=== PATIENT | male | born 1935 | race Caucasian/White ===

== ENCOUNTER 2021-05-25 15:21 | Inpatient (IN) ==
--- NOTE | 2021-05-25 16:20 | XRay Report ---
XR hip LT 2V w pelvis CLINICAL HISTORY: fall COMPARISON: None. DISCUSSION: No acute fracture or dislocation seen. Evaluation is limited due to diffuse osteopenia. Extensive vas cular calcifications are seen. Degenerative changes of the lower lumbar spine is seen. IMPRESSION: No acute fracture or dislocation. ACT 112: Negative or not required by law. The above report was generated using voice recognition software. It may contain grammatical, syntax o r spelling errors. Electronically signed by: Kathy Pimentel DO 05/25/2021 4:18 PM
--- NOTE | 2021-05-25 16:41 | CT Scan Report ---
CT head/brain wo con CLINICAL HISTORY: fall COMPARISON STUDY: No previous studies for comparison. TECHNIQUE: Axial CT of the brain is performed from the vertex to the skull base. IV contrast was not administered for this examination. A dose lowering technique was utilized adhering to the principles of ALARA. CT DOSE: FINDINGS: No acute intracranial hemorrhage, no midline shift or space occupying lesions are seen. Acevedo-white matter differentiation is resolved. Diffuse decrease in attenuation within periventricular and subcortical white matter are seen likely r epresenting chronic small vessel ischemia. Lacunar infarct is seen within right periventricular white matter and left basal ganglia. Diffuse atrophic changes of brain parenchyma are seen and associated with ex vacuo dilatation of vent ricles. Concentric calcifications of the bilateral vertebral arteries are seen. There is no acute depressed skull fracture seen. Almost complete opacification of the right maxillary sinus likely representing inflammatory process. The rest of visualized paranasal sinuses and mastoid air cells are patent and well-aerated. IMPRESSION: No acute intracranial hemorrhage, no midline shift or space occupying lesions. No acute depressed skull fractures. Signal ascites. Chronic small vessel ischemia and atrophic changes of brain parenchyma. ACT 112: Negative or not required by law. The above report was generated using voice recognition software. It may contain grammatical, syntax o r spelling errors. Electronically signed by: Kathy Pimentel DO 05/25/2021 4:39 PM
--- NOTE | 2021-05-25 16:52 | CT Scan Report ---
CT OF THE CERVICAL SPINE CLINICAL HISTORY: fall COMPARISON STUDY: No previous studies for comparison. CT DOSE: 1031.15 mGy.cm TECHNIQUE: CT scan of the cervical spine was performed from the skull base to the thoracic inlet. Carina ges are reviewed in the axial, sagittal, and coronal planes. IV contrast was not administered for thi s examination. A dose lowering technique was utilized adhering to the principles of ALARA. FINDINGS: The visualized portions of the lung apices reveal no evidence of pneumothorax. The prevertebral soft tissues are normal. No acute fractures seen. Evaluation is limited due to diffuse severe osteopenia. Mild anterolisthesis of C3 on C4 and retrolisthesis of C4 on C5 are seen and associated with fusion of the right facet leslie int. Facet joints are aligned throughout cervical spine. There is loss of normal cervical lordosis.. There are multilevel degenerative changes Mild narrowing of the central canal at C4-C5 and C5-C6 level due to posterior osteophytes and hypertr ophic changes of uncovertebral joints. IMPRESSION: 1. No evidence of acute fracture or traumatic malalignment. 2. Severe multilevel degenerative changes as detailed above. 3. Mild anterolisthesis of C3 on C4 and retrolisthesis of C4 on C5 is associated with fusion of the right facet joint at C3-C4 level. ACT 112: Negative or not required by law. The above report was generated using voice recognition software. It may contain grammatical, syntax o r spelling errors. Electronically signed by: Kathy Pimentel DO 05/25/2021 4:51 PM
--- NOTE | 2021-05-25 16:53 | XRay Report ---
XR femur LT 2V routine CLINICAL HISTORY: fall COMPARISON: None. DISCUSSION: The bones and joint spaces appear intact. There is no evidence of fracture or dislocation . Diffuse soft tissue edema, degenerative changes of the left knee joint and heavy vascular calcificati ons are seen. IMPRESSION: No acute fracture or dislocation. ACT 112: Negative or not required by law. The above report was generated using voice recognition software. It may contain grammatical, syntax o r spelling errors. Electronically signed by: Kathy Pimentel DO 05/25/2021 4:52 PM
--- NOTE | 2021-05-25 16:54 | XRay Report ---
XR chest 1V portable CLINICAL HISTORY: fall COMPARISON STUDY: No previous studies for comparison. FINDINGS: No pneumothorax. No pleural effusion. Mild atelectasis is seen at the left base. Cardiac silhouette is mildly enlarged. Aorta is tortuous and calcified. Midline sternotomy wires are seen. No significant pulmonary vascular congestion.. Osseous structures: Degenerative changes of the spine. IMPRESSION: 1. Small atelectasis at the left base. ACT 112: Negative or not required by law. The above report was generated using voice recognition software. It may contain grammatical, syntax o r spelling errors. Electronically signed by: Kathy Pimentel DO 05/25/2021 4:53 PM
[2021-05-25 16:58] LABS: Basophils # (auto) 0.02 K/uL (0-0.2); Basophils % (auto) 0.2 %; Eosinophils # (auto) 0.09 K/uL (0-0.5); Eosinophils % (auto) 0.8 %; Hematocrit (blood only) 41.9 % (42-52); Hemoglobin 14.3 g/dL (14.0-18.0); Immature Granulocytes # (auto) 0.05 K/uL (0.00-0.02); Immature Granulocytes % (auto) 0.5 %; Lymphocytes # (auto) 1.97 K/uL (1.2-3.4); Lymphocytes % (auto) 18.2 %; Mean Corpuscular Hemoglobin 34.2 pg (25-34); Mean Corpuscular Hgb Conc 34.1 g/dL (32-36); Mean Corpuscular Volume 100.2 fL (80-100); Mean Platelet Volume 8.8 fL (7.4-10.4); Monocytes # (auto) 1.85 K/uL (0.11-0.59); Monocytes % (auto) 17.1 %; Neutrophils # (auto) 6.82 K/uL (1.4-6.5); Neutrophils % (auto) 63.2 %; Platelet Count 240 K/uL (130-400); RDW Coefficient of Variation 13.6 % (11.5-14.5); RDW Standard Deviation 49.9 fL (36.4-46.3); Red Blood Count 4.18 M/uL (4.7-6.1)
[2021-05-25 17:16] LABS: BUN Creatinine Ratio 19.1 (10-20); Calcium 9.9 mg/dl (8.5-10.1); Creatinine Clr Calc Pharmacy 60.4 ml/min; Est GFR (African American) 85.9 ml/min; Est GFR (Non-African American) 74.2 ml/min; Potassium 4.1 mmol/L (3.5-5.1)
--- NOTE | 2021-05-25 18:07 | Emergency Department Note ---
History of Present Illness General Chief complaint: Hip Pain Stated complaint: Fall Time Seen by Provider: 05/25/21 15:37 Source: patient, family and EMS History of Present Illness Provider complaint: Fall left hip pain Location: lower extremity and left Quality: + aching Relieved By: + none Exacerbated By: + none Associated symptoms: no chest pain, no cough, no fever/chills, no headaches, no nausea/vomiting and no shortness of breath 85-year-old male presents emergency department for fall and left hip pain. Patient reports he fell yesterday. He does not report hitting his head. Patient reports his pain is moderate. Pain is located left hip. No radiation of the pain. Patient was brought in by EMS. EMS reports that the family states that the patient is fallen multiple times and cannot walk. They state he has early dementia and is more confused. Home Medications Medication Instructions Recorded Confirmed Type niacin 500 mg tablet 500 mg PO DAILY 03/12/20 05/25/21 History aspirin-dipyridamole [Aggrenox] 1 cap PO QAM 05/25/21 05/25/21 History atorvastatin 40 mg PO HS 05/25/21 05/25/21 History levothyroxine [Synthroid] 75 mcg PO QAM 05/25/21 05/25/21 History lisinopril 10 mg PO DAILY 05/25/21 05/25/21 History metoprolol tartrate 50 mg PO BID 05/25/21 05/25/21 History phenobarbital 16.2 mg PO QAM 05/25/21 05/25/21 History phenobarbital 32.4 mg PO BID 05/25/21 05/25/21 History phenytoin sodium extended 100 mg PO TID 05/25/21 05/25/21 History tamsulosin 0.4 mg PO BID 05/25/21 05/25/21 History Allergies Allergy/AdvReac Type Severity Reaction Status Date / Time No Known Allergies Allergy Unknown Verified 05/25/21 17:22 Past Med/Surg History Medical History BPH with obstruction/lower urinary tract symptoms Seizure Surgical History History of eye surgery History of heart surgery History of knee surgery RIGHT History of tonsillectomy Family History Denies family history of Prostate cancer Social History Smoking Status: Never smoker Hx Alcohol Use: No marital status: current occupational status: retired Feels Safe at Home: Yes Review of Systems Unobtainable due to cognitive status Physical Exam Vital Signs Vital Signs - 24 hr 05/25/21 15:13 05/25/21 16:30 Temperature 36.9 C Temperature Source Oral Pulse Rate 70 Respiratory Rate 18 Respiratory Effort / Characteristics Non-Labored Respiratory Depth Normal Respiratory Pattern Regular Blood Pressure 144/63 H Blood Pressure Mean 90 Blood Pressure Position Lying Pulse Oximetry 96 95 Oxygen Delivery Method Room Air Sepsis Recent Fever Within 48 Hours No Sepsis New/Unexplained Change in Mental Status No Sepsis Action Taken by Nursing No Action Required Physical Exam HENT: Exam performed. - Head: Normocephalic and atraumatic. - Right Ear: External ear normal. No mastoid tenderness. - Left Ear: External ear normal. No mastoid tenderness. - Mouth/Throat: The oropharynx is clear and moist. No trismus in the jaw. No dental abscesses or uvula swelling. No oropharyngeal exudate or tonsillar abscesses. EYES: Conjunctivae and EOM are normal. Pupils are equal, round, and reactive to light. Right eye exhibits no discharge. Left eye exhibits no discharge. No scleral icterus. NECK: Normal range of motion. Neck supple. No JVD present. No spinous process tenderness present. CV: Normal rate, regular rhythm, normal heart sounds and intact distal pulses. There is no peripheral edema. Palpable radial pulses bue. PULM/CHEST: Effort normal and breath sounds normal. No respiratory distress. No stridor. He has no wheezes. He has no rales. - Chest Wall: He exhibits no tenderness. ABD: The abdomen is soft. Bowel sounds are normal. He has no distension. No mass is present. There is no tenderness. There is no rebound, no guarding, no Valerio's sign and no tenderness at McBurney's point. Rovsig negative. MUSC/SKEL: Pain on palpation of the left hip. Pelvis stable. NEURO: Motor and sensation grossly intact. Course Course 153: The patient was evaluated in room B4. A complete history and physical exam was performed Cardiac monitoring: An order was placed for continuous cardiac monitoring. The monitor shows a rate of 70 with sinus rhythm 1600: patient's at bedside. She is requesting to speak to me in private. I spoke with the in private and she states that the patient has early onset dementia and is been falling more recently. She states he fell 5 times yesterday and the last 2 times she had to call for someone to help pick him up. She states patient cannot walk properly. She is requesting that patient be admitted to the hospital overnight for observation and placed in a rehab facility. I told the patient would have to see what the patient's labs and imaging showed first. She states she is having difficulty taking care of him at home. 1750: Vital signs stable. Labs within normal limits with exception of elevated Dilantin level. Imaging within normal limits. Discussed case with neurology on-call Dr. Moss who states hold the patient's Dilantin and he could be falling due to Dilantin toxicity. I discussed case with Dr. Zeb tineo [facility] hospitalist who stated he would evaluate the patient for admission. is again asking for the patient to be admitted but patient is arguing with his stating that he does not want to be admitted. lay out worker Laura will meet with them to see if the patient is willing to be admitted. Medical Decision Making Laboratory Data Result diagrams: 05/25/21 16:47 05/25/21 16:47 Lab Results 05/25/21 05/25/21 05/25/21 Range/Units 16:47 16:47 16:47 WBC 10.80 (4.8-10.8) K/uL RBC 4.18 L (4.7-6.1) M/uL Hgb 14.3 (14.0-18.0) g/dL Hct 41.9 L (42-52) % MCV 100.2 H (80-100) fL MCH 34.2 H (25-34) pg MCHC 34.1 (32-36) g/dL RDW Std Deviation 49.9 H (36.4-46.3) fL RDW Coeff of Manisha 13.6 (11.5-14.5) % Plt Count 240 (130-400) K/uL MPV 8.8 (7.4-10.4) fL Immature Gran % (Auto) 0.5 % Neut % (Auto) 63.2 % Lymph % (Auto) 18.2 % [place] % (Auto) 17.1 % Eos % (Auto) 0.8 % Baso % (Auto) 0.2 % Neut # (Auto) 6.82 H (1.4-6.5) K/uL Lymph # (Auto) 1.97 (1.2-3.4) K/uL [place] # (Auto) 1.85 H (0.11-0.59) K/uL Eos # (Auto) 0.09 (0-0.5) K/uL Baso # (Auto) 0.02 (0-0.2) K/uL Immature Gran # (Auto) 0.05 H (0.00-0.02) K/uL Sodium 137 (136-145) mmol/L Potassium 4.1 (3.5-5.1) mmol/L Chloride 104 (98-107) mmol/L Carbon Dioxide 25 (21-32) mmol/L Anion Gap 7.0 (3-11) BUN 18 (7-18) mg/dl Creatinine 0.94 (0.6-1.4) mg/dl Est Cr Clr Drug Dosing 60.4 ml/min Est GFR ( Amer) 85.9 ml/min Est GFR (Non-Af Amer) 74.2 ml/min BUN/Creatinine Ratio 19.1 (10-20) Glucose 125 H (70-99) mg/dl Calcium 9.9 (8.5-10.1) mg/dl Total Creatine Kinase 201 (39-308) U/L Phenytoin 32.3 H* (10-20) mcg/ml Imaging Data Radiologist's Impression: Head CT 05/25/21 15:44 CT head/brain wo con CLINICAL HISTORY: fall COMPARISON STUDY: No previous studies for comparison. TECHNIQUE: Axial CT of the brain is performed from the vertex to the skull base. IV contrast was not administered for this examination. A dose lowering technique was utilized adhering to the principles of ALARA. CT DOSE: FINDINGS: No acute intracranial hemorrhage, no midline shift or space occupying lesions are seen. Acevedo-white matter differentiation is resolved. Diffuse decrease in attenuation within periventricular and subcortical white matter are seen likely representing chronic small vessel ischemia. Lacunar infarct is seen within right periventricular white matter and left basal ganglia. Diffuse atrophic changes of brain parenchyma are seen and associated with ex va cuo dilatation of ventricles. Concentric calcifications of the bilateral vertebral arteries are seen. There is no acute depressed skull fracture seen. Almost complete opacification of the right maxillary sinus likely representing inflammatory process. The rest of visualized paranasal sinuses and mastoid air cells are patent and well- aerated. IMPRESSION: No acute intracranial hemorrhage, no midline shift or space occupying lesions. No acute depressed skull fractures. Signal ascites. Chronic small vessel ischemia and atrophic changes of brain parenchyma. ACT 112: Negative or not required by law. The above report was generated using voice recognition software. It may contain grammatical, syntax or spelling errors. Electronically signed by: Kathy Pimentel DO 05/25/2021 4:[address] 05/25/21 15:45 CT OF THE CERVICAL SPINE CLINICAL HISTORY: fall COMPARISON STUDY: No previous studies for comparison. CT DOSE: 1031.15 mGy.cm TECHNIQUE: CT scan of the cervical spine was performed from the skull base to the thoracic inlet. Images are reviewed in the axial, sagittal, and coronal planes. IV contrast was not administered for this examination. A dose lowering technique was utilized adhering to the principles of ALARA. FINDINGS: The visualized portions of the lung apices reveal no evidence of pneumothorax. The prevertebral soft tissues are normal. No acute fractures seen. Evaluation is limited due to diffuse severe osteopenia. Mild anterolisthesis of C3 on C4 and retrolisthesis of C4 on C5 are seen and associated with fusion of the right facet joint. Facet joints are aligned throughout cervical spine. There is loss of normal cervical lordosis.. There are multilevel degenerative changes Mild narrowing of the central canal at C4-C5 and C5-C6 level due to posterior osteophytes and hypertrophic changes of uncovertebral joints. IMPRESSION: 1. No evidence of acute fracture or traumatic malalignment. 2. Severe multilevel degenerative changes as detailed above. 3. Mild anterolisthesis of C3 on C4 and retrolisthesis of C4 on C5 is associated with fusion of the right facet joint at C3-C4 level. ACT 112: Negative or not required by law. The above report was generated using voice recognition software. It may contain grammatical, syntax or spelling errors. Electronically signed by: Kathy Pimentel DO 05/25/2021 4:51 PM Chest X-Ray 05/25/21 15:45 XR chest 1V portable CLINICAL HISTORY: fall COMPARISON STUDY: No previous studies for comparison. FINDINGS: No pneumothorax. No pleural effusion. Mild atelectasis is seen at the left base. Cardiac silhouette is mildly enlarged. Aorta is tortuous and calcified. Midline sternotomy wires are seen. No significant pulmonary vascular congestion.. Osseous structures: Degenerative changes of the spine. IMPRESSION: 1. Small atelectasis at the left base. ACT 112: Negative or not required by law. The above report was generated using voice recognition software. It may contain grammatical, syntax or spelling errors. Electronically signed by: Kathy Pimentel DO 05/25/2021 4:53 PM Femur X-Ray 05/25/21 15:45 XR femur LT 2V routine CLINICAL HISTORY: fall COMPARISON: None. DISCUSSION: The bones and joint spaces appear intact. There is no evidence of fracture or dislocation. Diffuse soft tissue edema, degenerative changes of the left knee joint and heavy vascular calcifications are seen. IMPRESSION: No acute fracture or dislocation. ACT 112: Negative or not required by law. The above report was generated using voice recognition software. It may contain grammatical, syntax or spelling errors. Electronically signed by: Kathy Pimentel DO 05/25/2021 4:52 PM Hip/Pelvis X-Ray 05/25/21 15:45 XR hip LT 2V w pelvis CLINICAL HISTORY: fall COMPARISON: None. DISCUSSION: No acute fracture or dislocation seen. Evaluation is limited due to diffuse osteopenia. Extensive vascular calcifications are seen. Degenerative changes of the lower lumbar spine is seen. IMPRESSION: No acute fracture or dislocation. ACT 112: Negative or not required by law. The above report was generated using voice recognition software. It may contain grammatical, syntax or spelling errors. Electronically signed by: Kathy Pimentel DO 05/25/2021 4:18 PM [facility] Narrative 1537: The patient was evaluated in room B4. A complete history and physical exam was performed Cardiac monitoring: An order was placed for continuous cardiac monitoring. The monitor shows a rate of 70 with sinus rhythm 1600: patient's at bedside. She is requesting to speak to me in private. I spoke with the in private and she states that the patient has early onset dementia and is been falling more recently. She states he fell 5 times yesterday and the last 2 times she had to call for someone to help pick him up. She states patient cannot walk properly. She is requesting that patient be admitted to the hospital overnight for observation and placed in a rehab facility. I told the patient would have to see what the patient's labs and imaging showed first. She states she is having difficulty taking care of him at home. 1750: Vital signs stable. Labs within normal limits with exception of elevated Dilantin level. Imaging within normal limits. Discussed case with neurology on-call Dr. Moss who states hold the patient's Dilantin and he could be falling due to Dilantin toxicity. I discussed case with Dr. Zeb tineo [facility] hospitalist who stated he would evaluate the patient for admission. is ag ain asking for the patient to be admitted but patient is arguing with his stating that he does not want to be admitted. lay out worker Laura will meet with them to see if the patient is willing to be admitted. Impression & Plan Dilantin toxicity, Recurrent falls Discharge Plan Visit Data Chief Complaint: Hip Pain Stated Complaint: Fall ED Provider: Joce Bennett Discharge Problem: Dilantin toxicity, Recurrent falls Patient Disposition: Being Evaluated by Hospitalist Forms Stand Alone Forms: My [facility] Prescriptions Prescriptions: No Action niacin 500 mg tablet 500 mg PO DAILY RF: 0 atorvastatin 40 mg tablet 40 mg PO HS RF: 0 phenobarbital 16.2 mg tablet 16.2 mg PO QAM RF: 0 aspirin-dipyridamole [Aggrenox] 25-200 mg Capsule, Er Multiphase 12 Hr 1 cap PO QAM RF: 0 phenytoin sodium extended 100 mg capsule 100 mg PO TID RF: 0 levothyroxine [Synthroid] 75 mcg tablet 75 mcg PO QAM RF: 0 tamsulosin 0.4 mg capsule 0.4 mg PO BID RF: 0 lisinopril 10 mg tablet 10 mg PO DAILY RF: 0 metoprolol tartrate 50 mg tablet 50 mg PO BID RF: 0 phenobarbital 32.4 mg tablet 32.4 mg PO BID RF: 0 Referrals Referrals: Sandi Roberts C.R.N.P. [Primary Care Provider] - Discharge Problem: Dilantin toxicity Qualifiers: Encounter type: initial encounter Injury intent: undetermined intent Qualified Code(s): T42.0X4A - Poisoning by hydantoin derivatives, undetermined, initial encounter
[2021-05-25] MEDS ORDERED: LORazepam 0.25 MG/0.5 ML VIAL IV STA (18:17)
--- NOTE | 2021-05-25 18:50 | History & Physical Report ---
Date of Service May 25, 2021 Assessment & Plan (1) Dilantin toxicity: Dilantin level 32.3 upon admission. Case discussed with neurology Dr. Moss by the ED over the phone. We will hold any further Dilantin dosing, and repeat laboratory level in a.m. Present on Admission?: Yes (2) Recurrent falls: Likely multifactorial: Progressive dementia, Dilantin toxicity, general deconditioning, blindness in left eye, others Present on Admission?: Yes (3) Seizure: Hold Dilantin as noted above. Continue phenobarbital dosing. Check a phenobarbital level Present on Admission?: Yes (4) Hyperlipidemia: Continue atorvastatin 40 mg at bedtime Present on Admission?: Yes (5) Hypertension: Hypertension/ASCVD- Continue Aggrenox, lisinopril, metoprolol tartrate Present on Admission?: Yes (6) ASCVD (arteriosclerotic cardiovascular disease): See above Present on Admission?: Yes (7) Hypothyroidism (acquired): Continue levothyroxine 75 mcg in the morning Present on Admission?: Yes (8) BPH with obstruction/lower urinary tract symptoms: Continue tamsulosin, but change dosing from 0.4 mg p.o. twice daily to 0.8 mg at bedtime to prevent any possible daytime orthostasis side effect contributing to falls Present on Admission?: Yes History of Present Illness Chief Complaint: Patient presents to the emergency department with his , who reports that the patient has had increasing frequency of falls over the past few weeks, with the patient complaining of left hip pain Primary Care Provider: Sandi Roberts Patient is an 85-year-old male with a past medical history including seizure disorder, dementia, bladder neck fracture, UTI, hyperlipidemia, hypothyroidism, hypertension, BPH with LUTS and ASCVD. The patient is very confused and is not able to contribute significantly to his HPI or review of systems. His reports that he is fallen several times over the past week or so, but the patient reports that he has only fallen 1 time that was yesterday. Patient clearly is having issues with memory loss and worsening dementia. Significant laboratories reveal Dilantin toxicity with a level of 32.3. CT of head shows chronic small vessel disease. CT of cervical spine shows multilevel degenerative disc disease, with fusion at C3-C4. X-ray of chest is negative. X-ray of femur and left hip is negative. Allergies Allergy/AdvReac Type Severity Reaction Status Date / Time No Known Allergies Allergy Unknown Verified 05/25/21 17:22 Home Medications Medication Instructions Recorded Confirmed Type niacin 500 mg tablet 500 mg PO DAILY 03/12/20 05/25/21 History aspirin-dipyridamole [Aggrenox] 1 cap PO QAM 05/25/21 05/25/21 History atorvastatin 40 mg PO HS 05/25/21 05/25/21 History levothyroxine [Synthroid] 75 mcg PO QAM 05/25/21 05/25/21 History lisinopril 10 mg PO DAILY 05/25/21 05/25/21 History metoprolol tartrate 50 mg PO BID 05/25/21 05/25/21 History phenobarbital 16.2 mg PO QAM 05/25/21 05/25/21 History phenobarbital 32.4 mg PO BID 05/25/21 05/25/21 History phenytoin sodium extended 100 mg PO TID 05/25/21 05/25/21 History tamsulosin 0.4 mg PO BID 05/25/21 05/25/21 History Past Med/Surg History Medical History BPH with obstruction/lower urinary tract symptoms Seizure Surgical History History of eye surgery History of heart surgery History of knee surgery RIGHT History of tonsillectomy Family History Denies family history of Prostate cancer Social History Smoking Status: Never smoker Hx Alcohol Use: No marital status: current occupational status: retired Feels Safe at Home: Yes Review of Systems Review of Systems: Patient himself is unable to contribute significantly to review of systems. His reports that he has had issues with worsening dementia and memory loss, and is unable to take care of himself at home. She reports that he is fallen several times over the past week or so, but the patient adamantly denies anything but one fall yesterday. Physical Exam Physical Exam: The patient is awake, disoriented and confused, normocephalic and atraumatic, lying in bed and in no acute distress. HEENT--PERRL, EOMI, mucous membranes and oropharynx dry. Neck--supple. No JVD. No bruits. Thyroid normal, trachea midline, no adenopathy. Heart--normal S1 and S2. No murmurs, rubs or gallops. Lungs--clear bilaterally, no respiratory distress, no accessory muscle use. Abdomen--normal bowel sounds and soft. Nontender. Nondistended. Mildly tympanitic. Extremities--no cyanosis or clubbing. No edema. Dermatologic--normal skin turgor, normal color, no abnormal lymph nodes, no rash. Neurologic--cranial nerves II through XII grossly intact. Rheumatologic--patient unable to ambulate. Upon standing, patient is unable to maintain balance, and would fall without support Psychiatric-patient is argumentative with , but not aggressive Results & Data Results & Data ([facility]) Vital Signs (Past 12 Hours) Vital Signs Temp Pulse Resp BP Pulse Ox 05/25/21 16:30 95 05/25/21 15:13 98.4 F 70 18 144/63 H 96 Laboratory Results Laboratory Results WBC 10.80 K/uL (4.8-10.8) 05/25/21 16:47 RBC 4.18 M/uL (4.7-6.1) L 05/25/21 16:47 Hgb 14.3 g/dL (14.0-18.0) 05/25/21 16:47 Hct 41.9 % (42-52) L 05/25/21 16:47 MCV 100.2 fL (80-100) H 05/25/21 16:47 MCH 34.2 pg (25-34) H 05/25/21 16:47 MCHC 34.1 g/dL (32-36) 05/25/21 16:47 RDW Std Deviation 49.9 fL (36.4-46.3) H 05/25/21 16:47 RDW Coeff of Manisha 13.6 % (11.5-14.5) 05/25/21 16:47 Plt Count 240 K/uL (130-400) 05/25/21 16:47 MPV 8.8 fL (7.4-10.4) 05/25/21 16:47 Immature Gran % (Auto) 0.5 % 05/25/21 16:47 Neut % (Auto) 63.2 % 05/25/21 16:47 Lymph % (Auto) 18.2 % 05/25/21 16:47 [place]ard % (Auto) 17.1 % 05/25/21 16:47 Eos % (Auto) 0.8 % 05/25/21 16:47 Baso % (Auto) 0.2 % 05/25/21 16:47 Neut # (Auto) 6.82 K/uL (1.4-6.5) H 05/25/21 16:47 Lymph # (Auto) 1.97 K/uL (1.2-3.4) 05/25/21 16:47 Seward # (Auto) 1.85 K/uL (0.11-0.59) H 05/25/21 16:47 Eos # (Auto) 0.09 K/uL (0-0.5) 05/25/21 16:47 Baso # (Auto) 0.02 K/uL (0-0.2) 05/25/21 16:47 Immature Gran # (Auto) 0.05 K/uL (0.00-0.02) H 05/25/21 16:47 Sodium 137 mmol/L (136-145) 05/25/21 16:47 Potassium 4.1 mmol/L (3.5-5.1) 05/25/21 16:47 Chloride 104 mmol/L (98-107) 05/25/21 16:47 Carbon Dioxide 25 mmol/L (21-32) 05/25/21 16:47 Anion Gap 7.0 (3-11) 05/25/21 16:47 BUN 18 mg/dl (7-18) 05/25/21 16:47 Creatinine 0.94 mg/dl (0.6-1.4) 05/25/21 16:47 Est Cr Clr Drug Dosing 60.4 ml/min 05/25/21 16:47 Est GFR ( Amer) 85.9 ml/min 05/25/21 16:47 Est GFR (Non-Af Amer) 74.2 ml/min 05/25/21 16:47 BUN/Creatinine Ratio 19.1 (10-20) 05/25/21 16:47 Glucose 125 mg/dl (70-99) H 05/25/21 16:47 Calcium 9.9 mg/dl (8.5-10.1) 05/25/21 16:47 Total Creatine Kinase 201 U/L (39-308) 05/25/21 16:47 Phenytoin 32.3 mcg/ml (10-20) H* 05/25/21 16:[address] 05/25/21 15:44 CT head/brain wo con CLINICAL HISTORY: fall COMPARISON STUDY: No previous studies for comparison. TECHNIQUE: Axial CT of the brain is performed from the vertex to the skull base. IV contrast was not administered for this examination. A dose lowering technique was utilized adhering to the principles of ALARA. CT DOSE: FINDINGS: No acute intracranial hemorrhage, no midline shift or space occupying lesions are seen. Acevedo-white matter differentiation is resolved. Diffuse decrease in attenuation within periventricular and subcortical white matter are seen likely representing chronic small vessel ischemia. Lacunar infarct is seen within right periventricular white matter and left basal ganglia. Diffuse atrophic changes of brain parenchyma are seen and associated with ex vacuo dilatation of ventricles. Concentric calcifications of the bilateral vertebral arteries are seen. There is no acute depressed skull fracture seen. Almost complete opacification of the right maxillary sinus likely representing inflammatory process. The rest of visualized paranasal sinuses and mastoid air cells are patent and well-aerated. IMPRESSION: No acute intracranial hemorrhage, no midline shift or space occupying lesions. No acute depressed skull fractures. Signal ascites. Chronic small vessel ischemia and atrophic changes of brain parenchyma. ACT 112: Negative or not required by law. The above report was generated using voice recognition software. It may contain grammatical, syntax or spelling errors. Electronically signed by: Kathy Pimentel DO 05/25/2021 4:[address] 05/25/21 15:45 CT OF THE CERVICAL SPINE CLINICAL HISTORY: fall COMPARISON STUDY: No previous studies for comparison. CT DOSE: 1031.15 mGy.cm TECHNIQUE: CT scan of the cervical spine was performed from the skull base to the thoracic inlet. Images are reviewed in the axial, sagittal, and coronal planes. IV contrast was not administered for this examination. A dose lowering technique was utilized adhering to the principles of ALARA. FINDINGS: The visualized portions of the lung apices reveal no evidence of pneumothorax. The prevertebral soft tissues are normal. No acute fractures seen. Evaluation is limited due to diffuse severe osteopenia. Mild anterolisthesis of C3 on C4 and retrolisthesis of C4 on C5 are seen and associated with fusion of the right facet joint. Facet joints are aligned throughout cervical spine. There is loss of normal cervical lordosis.. There are multilevel degenerative changes Mild narrowing of the central canal at C4-C5 and C5-C6 level due to posterior osteophytes and hypertrophic changes of uncovertebral joints. IMPRESSION: 1. No evidence of acute fracture or traumatic malalignment. 2. Severe multilevel degenerative changes as detailed above. 3. Mild anterolisthesis of C3 on C4 and retrolisthesis of C4 on C5 is associated with fusion of the right facet joint at C3-C4 level. ACT 112: Negative or not required by law. The above report was generated using voice recognition software. It may contain grammatical, syntax or spelling errors. Electronically signed by: Kathy Pimentel DO 05/25/2021 4:51 PM Chest X-Ray 05/25/21 15:45 XR chest 1V portable CLINICAL HISTORY: fall COMPARISON STUDY: No previous studies for comparison. FINDINGS: No pneumothorax. No pleural effusion. Mild atelectasis is seen at the left base. Cardiac silhouette is mildly enlarged. Aorta is tortuous and calcified. Midline sternotomy wires are seen. No significant pulmonary vascular congestion.. Osseous structures: Degenerative changes of the spine. IMPRESSION: 1. Small atelectasis at the left base. ACT 112: Negative or not required by law. The above report was generated using voice recognition software. It may contain grammatical, syntax or spelling errors. Electronically signed by: Kathy Pimentel DO 05/25/2021 4:53 PM Femur X-Ray 05/25/21 15:45 XR femur LT 2V routine CLINICAL HISTORY: fall COMPARISON: None. DISCUSSION: The bones and joint spaces appear intact. There is no evidence of fracture or dislocation. Diffuse soft tissue edema, degenerative changes of the left knee joint and heavy vascular calcifications are seen. IMPRESSION: No acute fracture or dislocation. ACT 112: Negative or not required by law. The above report was generated using voice recognition software. It may contain grammatical, syntax or spelling errors. Electronically signed by: Kathy Pimentel DO 05/25/2021 4:52 PM Hip/Pelvis X-Ray 05/25/21 15:45 XR hip LT 2V w pelvis CLINICAL HISTORY: fall COMPARISON: None. DISCUSSION: No acute fracture or dislocation seen. Evaluation is limited due to diffuse osteopenia. Extensive vascular calcifications are seen. Degenerative changes of the lower lumbar spine is seen. IMPRESSION: No acute fracture or dislocation. ACT 112: Negative or not required by law. The above report was generated using voice recognition software. It may contain grammatical, syntax or spelling errors. Electronically signed by: Kathy Pimentel DO 05/25/2021 4:18 PM Code Status & VTE Plan Code Status Full code VTE Prophylaxis Plan VTE Prophylaxis will be ordered: Yes PG Care Time/CCT Total # of Minutes Spent Total Time Spent with Patient: Total time spent is greater than 50% in coordination of care (as documented) at patient's floor/unit and/or counseling patient: Coding Level of Care Code 41703 OBS Care - Level 3 Diagnoses Dilantin toxicity T42.0X4A Encounter type: initial encounter Injury intent: undetermined intent Recurrent falls R29.6 Seizure R56.9 Hyperlipidemia E78.5 Hypertension I10 ASCVD (arteriosclerotic cardiovascular disease) I25.10 Hypothyroidism (acquired) E03.9 BPH with obstruction/lower urinary tract symptoms N40.1; N13.8 (1) Dilantin toxicity Encounter type: initial encounter Injury intent: undetermined intent Qualified Code(s): T42.0X4A - Poisoning by hydantoin derivatives, undetermined, initial encounter
[2021-05-25] MEDS ORDERED: ACETAMINOPHEN 325 MG TAB PO PRN (21:45)
[2021-05-25] MEDS ORDERED: ONDANSETRON INJ 2 MG/ML 2 ML VIAL IV PRN (21:45)
[2021-05-25] MEDS: NSS + 20MEQ KCL 20 MEQ/1,000 ML BAG IV SCH (22:35)
[2021-05-25] MEDS: HEPARIN SOD 5,000 UNIT/0.5 ML VIAL SQ SCH (22:36)
[2021-05-25] MEDS: TAMSULOSIN HCL 0.4 MG CAP PO SCH (22:36)
[2021-05-25] MEDS: ATORVASTATIN 40 MG TAB PO SCH (22:37)
[2021-05-25] MEDS: METOPROLOL TARTRATE 50 MG TAB PO SCH (22:37)
[2021-05-26] MEDS: LEVOTHYROXINE SODIUM 75 MCG TABLET PO SCH (07:00)
--- NOTE | 2021-05-26 07:41 | Electrocardiogram Report ---
Test Reason : Blood Pressure : / mmHG Vent. Rate : 068 BPM Atrial Rate : 068 BPM P-R Int : 274 ms QRS Dur : 096 ms QT Int : 432 ms P-R-T Axes : 000 026 046 degrees QTc Int : 459 ms Sinus rhythm with 1st degree A-V block Nonspecific ST abnormality Abnormal ECG When compared with ECG of 12-MAY-2005 08:52, NC interval has increased Confirmed by Tank Potter ([id number]) on 05/26/2021 7:40:57 AM Referred By: REFERRED SELF Confirmed By:Abe Potter
[2021-05-26] MEDS: HEPARIN SOD 5,000 UNIT/0.5 ML VIAL SQ SCH ×2 (08:23→21:09)
[2021-05-26] MEDS: DIPYRIDAMOLE/ASPIRIN CAP PO SCH (08:23)
[2021-05-26] MEDS: NIACIN 500 MG TAB PO SCH (08:24)
[2021-05-26] MEDS: lisinopril 10 MG TAB PO SCH (08:24)
[2021-05-26] MEDS: METOPROLOL TARTRATE 50 MG TAB PO SCH ×2 (08:24→21:02)
[2021-05-26 08:47] LABS: Basophils # (auto) 0.01 K/uL (0-0.2); Basophils % (auto) 0.1 %; Eosinophils # (auto) 0.12 K/uL (0-0.5); Eosinophils % (auto) 1.5 %; Hematocrit (blood only) 37.6 % (42-52); Hemoglobin 12.7 g/dL (14.0-18.0); Immature Granulocytes # (auto) 0.03 K/uL (0.00-0.02); Immature Granulocytes % (auto) 0.4 %; Lymphocytes # (auto) 1.49 K/uL (1.2-3.4); Lymphocytes % (auto) 18.6 %; Mean Corpuscular Hemoglobin 33.9 pg (25-34); Mean Corpuscular Hgb Conc 33.8 g/dL (32-36); Mean Corpuscular Volume 100.3 fL (80-100); Mean Platelet Volume 8.7 fL (7.4-10.4); Monocytes # (auto) 1.51 K/uL (0.11-0.59); Monocytes % (auto) 18.9 %; Neutrophils # (auto) 4.85 K/uL (1.4-6.5); Neutrophils % (auto) 60.5 %; Platelet Count 249 K/uL (130-400); RDW Coefficient of Variation 13.6 % (11.5-14.5); RDW Standard Deviation 49.8 fL (36.4-46.3); Red Blood Count 3.75 M/uL (4.7-6.1); White Blood Count 8.01 K/uL (4.8-10.8)
[2021-05-26 09:07] LABS: Albumin Level 3.1 gm/dl (3.4-5.0); BUN Creatinine Ratio 18.5 (10-20); Calcium 8.8 mg/dl (8.5-10.1); Creatinine Clr Calc Pharmacy 75.7 ml/min; Est GFR (African American) 97.6 ml/min; Est GFR (Non-African American) 84.2 ml/min; Potassium 4.3 mmol/L (3.5-5.1)
[2021-05-26 09:10] LABS: Albumin Globulin Ratio 0.9 (0.9-2); Bilirubin,Total 0.3 mg/dl (0.2-1); Globulin 3.5 gm/dl (2.5-4.0); Total Protein 6.6 gm/dl (6.4-8.2)
--- NOTE | 2021-05-26 09:37 | Hospitalist Progress Note ---
Date of Service May 26, 2021 Assessment & Plan (1) Dilantin toxicity: Dilantin level 32.3 upon admission. Repeat Dilantin 25.9 (05/26). Appreciate input from Neurology: Would recommend resuming Dilantin tomorrow but at a lower dosage, 100 mg twice daily. Continue with phenobarbital at the current dosage. (2) Recurrent falls: Likely multifactorial: Progressive dementia, Dilantin toxicity, general deconditioning, blindness in left eye, others will consult PT/OT (3) Seizure: Hold Dilantin as noted above. Will restart in AM. Continue phenobarbital dosing. Check a phenobarbital level (4) Hyperlipidemia: Continue atorvastatin 40 mg at bedtime (5) Hypertension: Hypertension/ASCVD- Continue Aggrenox, lisinopril, metoprolol tartrate (6) ASCVD (arteriosclerotic cardiovascular disease): See above (7) Hypothyroidism (acquired): Continue levothyroxine 75 mcg in the morning (8) BPH with obstruction/lower urinary tract symptoms: Continue tamsulosin, but change dosing from 0.4 mg p.o. twice daily to 0.8 mg at bedtime to prevent any possible daytime orthostasis side effect contributing to falls Admission and Anticipated Discharge Date Admission Date: May 25, 2021 Subjective Patient is a pleasant male whoc came in with recent falls and dilantin toxicity. He currently reports feeling well and knows he is in the hospital. He reports he falls "sometimes" at home. He states he does not remember the date as well given that he He understands that he is in the hospital. Does not recall the month we are in or the season (states it is spring), but once informed of the month, he replies, that his birthday is coming up next week. Review of Systems Review of Systems: All systems reviewed & are unremarkable except as noted in HPI & below Physical Exam Physical Exam: The patient is awake, normocephalic and atraumatic, lying in bed and in no acute distress. HEENT--PERRL, EOMI, mucous membranes and oropharynx dry. Neck--supple. No JVD. No bruits. Thyroid normal, trachea midline, no adenopathy. Heart--normal S1 and S2. No murmurs, rubs or gallops. Lungs--clear bilaterally, no respiratory distress, no accessory muscle use. Abdomen--normal bowel sounds and soft. Nontender. Nondistended. Mildly tympanitic. Extremities--no cyanosis or clubbing. No edema. Dermatologic--normal skin turgor, normal color, no abnormal lymph nodes, no rash. Neurologic--cranial nerves II through XII grossly intact. Psychiatric-Patient is AA oriented to person and place. Results & Data Results & Data ([facility]) Vital Signs (Past 12 Hours) Vital Signs Temp Pulse Pulse Resp BP Pulse Ox 05/26/21 08:04 36.5 C 68 18 126/65 96 05/26/21 07:16 64 05/26/21 05:56 36.7 C 66 18 146/83 H 93 05/26/21 03:25 74 05/26/21 01:24 36.9 C 71 18 156/68 H 96 05/25/21 23:02 36.8 C 62 20 141/68 H 96 PG Care Time/CCT Total # of Minutes Spent Total Time Spent with Patient: Total time spent is greater than 50% in coordination of care (as documented) at patient's floor/unit and/or counseling patient: Coding Level of Care Code 15298 Subseq Hosp Care Lvl 3 Diagnoses Dilantin toxicity T42.0X4A Encounter type: initial encounter Injury intent: undetermined intent Recurrent falls R29.6 Seizure R56.9 Hyperlipidemia E78.5 Hypertension I10 ASCVD (arteriosclerotic cardiovascular disease) I25.10 Hypothyroidism (acquired) E03.9 BPH with obstruction/lower urinary tract symptoms N40.1; N13.8 (1) Dilantin toxicity Encounter type: initial encounter Injury intent: undetermined intent Qualified Code(s): T42.0X4A - Poisoning by hydantoin derivatives, undetermined, initial encounter
--- NOTE | 2021-05-26 10:20 | Neurology Consultation ---
Date of Consultation May 26, 2021 Assessment & Plan (1) Dilantin toxicity: (2) Dementia: 85-year-old male with a history of epilepsy originally diagnosed in childhood. He has been stable for many years with Dilantin and phenobarbital. However, presents with Dilantin toxicity. Would recommend resuming Dilantin tomorrow but at a lower dosage, 100 mg twice daily. Continue with phenobarbital at the current dosage. We will check a follow-up phenytoin trough level in 5 to 7 days. Would also recommend checking a vitamin B12 level and TFTs in the context of suspected dementia, probably mild. No imaging evidence of normal pressure hydrocephalus. Does have a few chronic scattered lacunar infarcts. 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 Would hold off on starting a cholinesterase inhibitor at this time. Patient's cognitive status could be evaluated further in the outpatient setting. Is prescribed Aggrenox and atorvastatin, these medication should be continued. History of Present Illness Reason for Consultation: Dilantin toxicity Requesting Physician: Gilberto Palm MD Attending Physician: Jerel Herrera History of Present Illness The patient is an 85-year-old male who presented to the emergency department yesterday complaining of frequent falls and confusion. Symptoms actually reported by his spouse. History notable for epilepsy beginning in childhood for which he is prescribed Dilantin and phenobarbital, managed by his PCP affiliated with the [facility] administration. Patient is an unreliable historian. Not sure when his last convulsive episode occurred although probably many years. Patient reports that he has been taking his anticonvulsant medication regularly with no recent dosage adjustments or extra doses. Spouse has expressed some concern regarding dementia as well. A phenytoin level was 32.3 yesterday. Phenobarbital level was 26.3. No acute abnormality on CT of the head. Study does reveal senescent changes including atrophy and chronic small vessel ischemic disease. I did review the images as well as the radiologist interpretation of this test and agree. I had discussed his case with the emergency department physician yesterday. Patient has been admitted for further evaluation and care, holding Dilantin currently. As above, he is somewhat confused and is an unreliable historian. He does not have any specific complaints at this point in time. Allergies Allergy/AdvReac Type Severity Reaction Status Date / Time No Known Allergies Allergy Unknown Verified 05/25/21 17:22 Home Medications Medication Instructions Recorded Confirmed Type niacin 500 mg tablet 500 mg PO DAILY 03/12/20 05/25/21 History aspirin-dipyridamole [Aggrenox] 1 cap PO QAM 05/25/21 05/25/21 History atorvastatin 40 mg PO HS 05/25/21 05/25/21 History levothyroxine [Synthroid] 75 mcg PO QAM 05/25/21 05/25/21 History lisinopril 10 mg PO DAILY 05/25/21 05/25/21 History metoprolol tartrate 50 mg PO BID 05/25/21 05/25/21 History phenobarbital 16.2 mg PO QAM 05/25/21 05/25/21 History phenobarbital 32.4 mg PO BID 05/25/21 05/25/21 History phenytoin sodium extended 100 mg PO TID 05/25/21 05/25/21 History tamsulosin 0.4 mg PO BID 05/25/21 05/25/21 History Patient History Medical History ASCVD (arteriosclerotic cardiovascular disease) BPH with obstruction/lower urinary tract symptoms Hyperlipidemia Hypertension Hypothyroidism (acquired) Seizure Surgical History History of eye surgery History of heart surgery History of knee surgery RIGHT History of tonsillectomy Family History Denies family history of Prostate cancer Social History Smoking Status: Never smoker Hx Alcohol Use: No Hx Substance Use: No Preferred Language: Welsh Communication Ability: Effective 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 Beliefs That Will Affect Care: None marital status: Current Living Situation: Spouse current occupational status: retired Feels Safe at Home: Yes Assistive Devices: None Review of Systems Constitutional: no fever and no chills Eyes: + blind spots Chronic vision loss left eye, old trauma Ear, Nose, Mouth, Throat: no ear pain and no hearing loss Respiratory: no cough and no dyspnea Cardiovascular: no chest pain and no palpitations Gastrointestinal: no nausea and no vomiting Genitourinary: no dysuria Musculoskeletal: no myalgia Integumentary: no rash and no lesions Neurologic: as per Subjective / HPI, + gait abnormality, + tremor(s) and + memory loss; no seizure-like activity and no syncope Psychiatric: no depression and no anxiety Hematologic / Lymphatic: no easy bleeding and no easy bruising Exam (Neuro) Constitutional: well developed and well nourished; no acute distress Eyes: normal visual bloom by confrontation, PERRL, normal accommodation and EOM intact bilaterally; no fundoscopic abnormality, no nystagmus and no papilledema Cardiovascular: Vessels: normal carotid upstroke; no carotid bruit Neurologic: Oriented to:: Person and Place; negative Time Memory: Remote Intact; negative Short Term Intact Attention: Span Intact and Concentration Intact Language: Naming Objects and Repeating Phrases Speech Fluency: negative Dysarthria Speech Aphasia: negative Aphasia Fund of Knowledge: Past History and Vocabulary; negative Current Events Cranial Nerves: Normal V (Facial sensation intact), VII (There is no facial droop or weakness), VIII (Hearing intact), IX, X (Palate elevates to midline), XI (Shoulder shrug intact) and XII (Tongue protrudes to midline); Abnorm II (No light perception left eye) and III, IV, (Left pupil nonreactive. Left eye laterally deviated.) Motor Strength: Normal Lower Extremities and Normal Upper Extremities; negative Pronator Drift Motor Tone: Normal Lower Extremities and Normal Upper Extremities Muscle Bulk/Involuntary Movements: Action Tremor; negative Muscle Atrophy Sensation: Light Touch Intact, Pain/Temperature Intact and Proprioception Intact; negative Vibration Intact Coordination: Normal; negative Dysdiadochokinesia, Finger-Nose Abnormal and Heel-Shirley Abnormal Deep Tendon Reflexes: Rt Triceps: 2+, Lt Triceps: 2+, Rt Biceps: 2+, Lt Biceps: 2+, Rt Brachioradialis: 2+, Lt Brachioradialis: 2+, Rt Patellar: 2+, Lt Patellar: 2+, Rt Ankle: 1+ and Lt Ankle: 1+ Special Tests: negative Babinski Present Details: Gait not tested in the context of patient's current neurologic status. Results & Data ([facility]) Vital Signs (Past 12 Hours) Vital Signs Temp Pulse Pulse Resp BP Pulse Ox 05/26/21 08:04 36.5 C 68 18 126/65 96 05/26/21 07:16 64 05/26/21 05:56 36.7 C 66 18 146/83 H 93 05/26/21 03:25 74 05/26/21 01:24 36.9 C 71 18 156/68 H 96 05/25/21 23:02 36.8 C 62 20 141/68 H 96 Laboratory Results WBC 8.01, hemoglobin 12.7, hematocrit 37.6, platelet count 249, sodium 139, potassium 4.3, BUN 14, creatinine 0.75, AST 24, ALT 22, phenytoin 32.3, phenobarbital 26.[address] of the head is as described in the history of present illness. Patient also had a CT of the cervical spine completed that revealed mild anterolisthesis of C3 on 4 and retrolisthesis of C4 on 5 with associated fusion of the right facet joint at C3-4. I reviewed the images as well as the radiologist interpretation of these tests and agree. Electrocardiogram reveals a sinus rhythm with first-degree AV block, 68 bpm. Coding Level of Care Code 48940 Initial In Care Lvl 3 Diagnoses Dilantin toxicity T42.0X4A Encounter type: initial encounter Injury intent: undetermined intent Dementia F03.90 (1) Dilantin toxicity Encounter type: initial encounter Injury intent: undetermined intent Qualified Code(s): T42.0X4A - Poisoning by hydantoin derivatives, undetermined, initial encounter
[2021-05-26] MEDS: NSS + 20MEQ KCL 20 MEQ/1,000 ML BAG IV SCH (14:07)
[2021-05-26] MEDS: TAMSULOSIN HCL 0.4 MG CAP PO SCH (21:08)
[2021-05-26] MEDS: ATORVASTATIN 40 MG TAB PO SCH (21:08)
[2021-05-27] MEDS: LEVOTHYROXINE SODIUM 75 MCG TABLET PO SCH (05:50)
[2021-05-27] MEDS: NSS + 20MEQ KCL 20 MEQ/1,000 ML BAG IV SCH (06:17)
[2021-05-27 06:22] LABS: Basophils # (auto) 0.02 K/uL (0-0.2); Basophils % (auto) 0.2 %; Eosinophils # (auto) 0.16 K/uL (0-0.5); Eosinophils % (auto) 1.9 %; Hematocrit (blood only) 39.2 % (42-52); Immature Granulocytes # (auto) 0.04 K/uL (0.00-0.02); Immature Granulocytes % (auto) 0.5 %; Lymphocytes # (auto) 1.69 K/uL (1.2-3.4); Lymphocytes % (auto) 20.2 %; Mean Corpuscular Hemoglobin 33.9 pg (25-34); Mean Corpuscular Hgb Conc 33.2 g/dL (32-36); Mean Corpuscular Volume 102.1 fL (80-100); Monocytes # (auto) 1.44 K/uL (0.11-0.59); Monocytes % (auto) 17.2 %; Neutrophils # (auto) 5.01 K/uL (1.4-6.5); Platelet Count 263 K/uL (130-400); RDW Coefficient of Variation 13.6 % (11.5-14.5); RDW Standard Deviation 51.6 fL (36.4-46.3); Red Blood Count 3.84 M/uL (4.7-6.1); White Blood Count 8.36 K/uL (4.8-10.8)
[2021-05-27 06:59] LABS: Albumin Level 3.1 gm/dl (3.4-5.0); BUN Creatinine Ratio 16.5 (10-20); Calcium 9.1 mg/dl (8.5-10.1); Creatinine Clr Calc Pharmacy 70.1 ml/min; Est GFR (African American) 94.6 ml/min; Est GFR (Non-African American) 81.6 ml/min; Potassium 4.2 mmol/L (3.5-5.1)
[2021-05-27 07:02] LABS: Albumin Globulin Ratio 0.9 (0.9-2); Bilirubin,Total 0.4 mg/dl (0.2-1); Globulin 3.3 gm/dl (2.5-4.0); Total Protein 6.4 gm/dl (6.4-8.2)
[2021-05-27] MEDS: HEPARIN SOD 5,000 UNIT/0.5 ML VIAL SQ SCH (08:41)
[2021-05-27] MEDS: NIACIN 500 MG TAB PO SCH (08:41)
[2021-05-27] MEDS: DIPYRIDAMOLE/ASPIRIN CAP PO SCH (08:41)
[2021-05-27] MEDS: lisinopril 10 MG TAB PO SCH (08:41)
[2021-05-27] MEDS: METOPROLOL TARTRATE 50 MG TAB PO SCH (08:41)
--- NOTE | 2021-05-27 12:59 | Discharge Summary ---
Date of Service May 27, 2021 Admission HPI Per Admitting Provider Patient is an 85-year-old male with a past medical history including seizure disorder, dementia, bladder neck fracture, UTI, hyperlipidemia, hypothyroidism, hypertension, BPH with LUTS and ASCVD. The patient is very confused and is not able to contribute significantly to his HPI or review of systems. His reports that he is fallen several times over the past week or so, but the patient reports that he has only fallen 1 time that was yesterday. Patient clearly is having issues with memory loss and worsening dementia. Significant laboratories reveal Dilantin toxicity with a level of 32.3. CT of head shows chronic small vessel disease. CT of cervical spine shows multilevel degenerative disc disease, with fusion at C3-C4. X-ray of chest is negative. X-ray of femur and left hip is negative. Principal Diagnosis Dilantin toxicity, Multiple falls, Confusion Discharge Exam Constitutional WD/WN, vitals as above Eyes + anicteric sclerae Neck trachea midline, no thyromegaly Respiratory normal respiratory effort, lungs clear to auscultation Cardiovascular RRR, no murmur, no edema Chest (Breasts) Chest: normal inspection of chest Gastrointestinal (Abdomen) normal bowel sounds, soft, nontender, no hepatosplenomegaly Musculoskeletal Extremities: extremities normal to inspection; no cyanosis and no clubbing Skin no rashes, warm and dry Neurologic moves all extremities, awake and + confused (forgetful); no focal motor deficits (5/5 strength throughout upper and lower extremities) Psychiatric Orientation: alert, oriented to person, oriented to place and cooperative Affect: + irritable affect Cognition: + recent memory not intact Lymphatic no lymphedema Discharge Data Allergies Allergy/AdvReac Type Severity Reaction Status Date / Time No Known Allergies Allergy Unknown Verified 05/25/21 17:22 Consultations 05/25/21 17:53 ED Decision to Admit Stat 05/25/21 21:45 Consult Neurology Routine Ordered Studies 05/25/21 15:44 CT head/brain wo con Stat 05/25/21 15:45 CT cervical spine wo con Stat Head CT 05/25/21 15:44 CT head/brain wo con CLINICAL HISTORY: fall COMPARISON STUDY: No previous studies for comparison. TECHNIQUE: Axial CT of the brain is performed from the vertex to the skull base. IV contrast was not administered for this examination. A dose lowering technique was utilized adhering to the principles of ALARA. CT DOSE: FINDINGS: No acute intracranial hemorrhage, no midline shift or space occupying lesions are seen. Acevedo-white matter differentiation is resolved. Diffuse decrease in attenuation within periventricular and subcortical white matter are seen likely representing chronic small vessel ischemia. Lacunar infarct is seen within right periventricular white matter and left basal ganglia. Diffuse atrophic changes of brain parenchyma are seen and associated with ex vacuo dilatation of ventricles. Concentric calcifications of the bilateral vertebral arteries are seen. There is no acute depressed skull fracture seen. Almost complete opacification of the right maxillary sinus likely representing inflammatory process. The rest of visualized paranasal sinuses and mastoid air cells are patent and well- aerated. IMPRESSION: No acute intracranial hemorrhage, no midline shift or space occupying lesions. No acute depressed skull fractures. Signal ascites. Chronic small vessel ischemia and atrophic changes of brain parenchyma. ACT 112: Negative or not required by law. The above report was generated using voice recognition software. It may contain grammatical, syntax or spelling errors. Electronically signed by: Kathy Pimentel DO 05/25/2021 4:[address] 05/25/21 15:45 CT OF THE CERVICAL SPINE CLINICAL HISTORY: fall COMPARISON STUDY: No previous studies for comparison. CT DOSE: 1031.15 mGy.cm TECHNIQUE: CT scan of the cervical spine was performed from the skull base to the thoracic inlet. Images are reviewed in the axial, sagittal, and coronal planes. IV contrast was not administered for this examination. A dose lowering technique was utilized adhering to the principles of ALARA. FINDINGS: The visualized portions of the lung apices reveal no evidence of pneumothorax. The prevertebral soft tissues are normal. No acute fractures seen. Evaluation is limited due to diffuse severe osteopenia. Mild anterolisthesis of C3 on C4 and retrolisthesis of C4 on C5 are seen and associated with fusion of the right facet joint. Facet joints are aligned throughout cervical spine. There is loss of normal cervical lordosis.. There are multilevel degenerative changes Mild narrowing of the central canal at C4-C5 and C5-C6 level due to posterior osteophytes and hypertrophic changes of uncovertebral joints. IMPRESSION: 1. No evidence of acute fracture or traumatic malalignment. 2. Severe multilevel degenerative changes as detailed above. 3. Mild anterolisthesis of C3 on C4 and retrolisthesis of C4 on C5 is associated with fusion of the right facet joint at C3-C4 level. ACT 112: Negative or not required by law. The above report was generated using voice recognition software. It may contain grammatical, syntax or spelling errors. Electronically signed by: Kathy Pimentel DO 05/25/2021 4:51 PM Chest X-Ray 05/25/21 15:45 XR chest 1V portable CLINICAL HISTORY: fall COMPARISON STUDY: No previous studies for comparison. FINDINGS: No pneumothorax. No pleural effusion. Mild atelectasis is seen at the left base. Cardiac silhouette is mildly enlarged. Aorta is tortuous and calcified. Midline sternotomy wires are seen. No significant pulmonary vascular congestion.. Osseous structures: Degenerative changes of the spine. IMPRESSION: 1. Small atelectasis at the left base. ACT 112: Negative or not required by law. The above report was generated using voice recognition software. It may contain grammatical, syntax or spelling errors. Electronically signed by: Kathy Pimentel DO 05/25/2021 4:53 PM Femur X-Ray 05/25/21 15:45 XR femur LT 2V routine CLINICAL HISTORY: fall COMPARISON: None. DISCUSSION: The bones and joint spaces appear intact. There is no evidence of fracture or dislocation. Diffuse soft tissue edema, degenerative changes of the left knee joint and heavy vascular calcifications are seen. IMPRESSION: No acute fracture or dislocation. ACT 112: Negative or not required by law. The above report was generated using voice recognition software. It may contain grammatical, syntax or spelling errors. Electronically signed by: Kathy Pimentel DO 05/25/2021 4:52 PM Hip/Pelvis X-Ray 05/25/21 15:45 XR hip LT 2V w pelvis CLINICAL HISTORY: fall COMPARISON: None. DISCUSSION: No acute fracture or dislocation seen. Evaluation is limited due to diffuse osteopenia. Extensive vascular calcifications are seen. Degenerative changes of the lower lumbar spine is seen. IMPRESSION: No acute fracture or dislocation. ACT 112: Negative or not required by law. The above report was generated using voice recognition software. It may contain grammatical, syntax or spelling errors. Electronically signed by: Kathy Pimentel DO 05/25/2021 4:18 PM Hospital Course (1) Dilantin toxicity: Dilantin level 32.3 upon admission Repeat Dilantin 25.9 (05/26). Appreciate input from Neurology: Would recommend resuming Dilantin but at a lower dosage, 100 mg twice daily. Check Dilantin level in 4 more days. Continue with phenobarbital at the current dosage. (2) Recurrent falls: Likely multifactorial: Progressive dementia, Dilantin toxicity, general deconditioning, blindness in left eye, others will consult PT/OT-recommend rehab (3) Seizure: Long standing seizure disorder, no recent seizures lower dose of Dilantin as noted above. Continue phenobarbital dosing. phenobarbital level acceptable (4) Hyperlipidemia: Continue atorvastatin 40 mg at bedtime (5) Hypertension: Hypertension/ASCVD- Continue Aggrenox, lisinopril, metoprolol tartrate (6) ASCVD (arteriosclerotic cardiovascular disease): See above (7) Hypothyroidism (acquired): Continue levothyroxine 75 mcg in the morning TSH normal (8) BPH with obstruction/lower urinary tract symptoms: Continue tamsulosin, but change dosing from 0.4 mg p.o. twice daily to 0.8 mg at bedtime to prevent any possible daytime orthostasis side effect contributing to falls (9) Mild cognitive impairment: suspected B12 and TSH normal f/u with Neuro as outpt Dispo-stable for dc to rehab Total Time Total Time Spent Total Time Spent (In Minutes): 35 min Total Time Includes: Examination of the Patient, Discharge Planning and Medication Reconciliation Discharge Plan Discharge Items Patient Disposition: Transfer Inpatient Rehab Fac Reason For Visit: FREQUENT FALLS, CONFUSION, DEMENTIA Discharge Diagnosis: Dilantin toxicity, weakness, multiple falls Condition on Discharge: Fair Activity: As commented below Lifting: Gradually increase as tolerated Exercise/Sports: Gradually increase as tolerated Non-emergency contact: Primary Care Provider Call non-emergency contact if: you have any medication questions and your symptoms worsen Follow-up/Referrals: Sandi Roberts, RadhaR.N.P. [Primary Care Provider] - (Follow up within 2 weeks after discharge from rehab ) Diet: Heart Healthy Addtl Attending Provider Instructions: Please repeat Dilantin trough level in 4-5 days. Pending Studies at Discharge: No Stand-Alone Forms: My [facility] Skilled Items Patient informed of condition?: Yes DNR: No Discharge Level of Care: Acute rehab Communicable Disease: No Discharge Prognosis: Improving Lines: None Urinary Catheter: No Medications and DC Order Prescriptions: Continued niacin 500 mg tablet 500 mg PO DAILY RF: 0 atorvastatin 40 mg tablet 40 mg PO HS RF: 0 phenobarbital 16.2 mg tablet 16.2 mg PO QAM RF: 0 aspirin-dipyridamole [Aggrenox] 25-200 mg Capsule, Er Multiphase 12 Hr 1 cap PO QAM RF: 0 levothyroxine [Synthroid] 75 mcg tablet 75 mcg PO QAM RF: 0 lisinopril 10 mg tablet 10 mg PO DAILY RF: 0 metoprolol tartrate 50 mg tablet 50 mg PO BID RF: 0 phenobarbital 32.4 mg tablet 32.4 mg PO BID RF: 0 Changed tamsulosin 0.4 mg capsule 0.8 mg PO HS Qty: 0 RF: 0 phenytoin sodium extended 100 mg capsule 100 mg PO BID Qty: 60 RF: 0 Discharge Orders: Discharge Order (Routine); Ordered 05/27/21 Ordered By: Bettina Shaver Admission Data Admit Date/Time: 05/26/21 13:59 Attending Provider: Bettina Shaver Admit Provider: Gilberto Palm Primary Care Provider: Sandi Roberts Other Providers: Gilberto Palm ; John Moss ; [facility] Coding Level of Care Code D/C DAY MANAGEMENT >30 MINS Diagnoses Dilantin toxicity T42.0X4A Encounter type: initial encounter Injury intent: undetermined intent Recurrent falls R29.6 Seizure R56.9 Hyperlipidemia E78.5 Hypertension I10 ASCVD (arteriosclerotic cardiovascular disease) I25.10 Hypothyroidism (acquired) E03.9 BPH with obstruction/lower urinary tract symptoms N40.1; N13.8 Mild cognitive impairment G31.84
== END 2021-05-27 16:17 | DRG 556 ==
LOC: 2N 15:21 → ED 15:21 → SUATTDRO 18:35 → 2N 22:15 → SUATTDRO 05-26 13:59

== ENCOUNTER 2024-03-16 15:35 | Observation (INO) ==
[2024-03-16 16:13] LABS: Basophils # (auto) 0.08 K/uL (0.00-0.20); Basophils % (auto) 0.9 %; Eosinophils # (auto) 0.23 K/uL (0.00-0.50); Eosinophils % (auto) 2.5 %; Hematocrit (blood only) 40.5 % (42.0-52.0); Hemoglobin 13.7 g/dl (14.0-18.0); Immature Granulocytes % (auto) 1.1 %; Lymphocytes # (auto) 2.24 K/uL (1.20-3.40); Mean Corpuscular Hemoglobin 32.9 pg (25.0-34.0); Mean Corpuscular Hgb Conc 33.8 g/dL (32.0-36.0); Mean Corpuscular Volume 97.4 fL (80.0-100.0); Mean Platelet Volume 8.7 fL (9.4-12.4); Monocytes # (auto) 1.46 K/uL (0.11-0.59); Monocytes % (auto) 15.6 %; Neutrophils # (auto) 5.22 K/uL (1.40-6.50); Neutrophils % (auto) 55.9 %; Platelet Count 345 K/uL (130-400); RDW Coefficient of Variation 13.1 % (11.5-14.5); RDW Standard Deviation 46.9 fL (36.4-46.3); Red Blood Count 4.16 M/uL (4.70-6.10); White Blood Count 9.33 K/ul (4.8-10.8)
[2024-03-16 16:27] LABS: INR 1.1 (0.9-1.1); Partial Thromboplastin Ratio 1.2; Partial Thromboplastin Time 32 Seconds (21-31); Prothrombin Time 11.5 Seconds (9.0-12.0)
--- NOTE | 2024-03-16 16:28 | Emergency Department Note ---
Impression & Plan Chest pain, Hypertension, History of coronary artery bypass graft ED Provider Note NAME: KAILA MARSH AGE: 88 SEX: M : 1935 ARRIVES VIA: Walk-In INFORMANT: Patient, ED PROVIDER(S): Christopher Garcia MD CHIEF COMPLAINT: Chest pain MEDICAL DECISION MAKING: Patient presents due to concern for chest pain. IV was established and blood work was obtained. Patient moderate to high risk given the patient's prior history of CABG and the patient's bout of chest pain has been intermittent and at rest. EKG without any overt findings. Patient's initial read as accelerated junctional but does appear to be sinus with prolonged MS first-degree AV block. Patient was ordered aspirin and nitro as the patient was noted to be hypertensive upon arrival. Patient did have a brief bout of chest pain in the room but this lasted all of maybe several seconds. Patient's blood work She has a normal white count mild anemia hemoglobin 13.7 normal platelet count. The patient's kidney function is unremarkable. BSG at 130. Troponin 17.8 chest x- ray without evidence of obvious pneumonia or pneumothorax does have cardiomegaly and some vascular congestion. I did speak the on-call hospitalist and the patient was admitted to the medicine service. Of note left eye droop is chronic. Discussion w/ other healthcare providers: Dr. Collier inpatient medicine service Prior /Outside records reviewed: None Differential diagnosis: Cardiac ischemia, aortic dissection, pulmonary embolism, pneumothorax, pneumonia, pericarditis, myocarditis, GERD, cholecystitis, pancreatitis, musculoskeletal, as well as other pathologies were considered. Diagnostics, as interpreted by me: ECG: Sinus with first-degree block, rate of 67, normal QRS duration normal axis no ST elevations. Cardiac monitoring: An order was placed for continuous cardiac monitoring. The monitor shows a rate of 68 with sinus rhythm. Patient was placed on pulse oximetry Medical decision rules: Heart score Imaging studies: I informally interpreted the patient's chest x-ray does not show obvious pneumonia or pneumothorax with formal report to follow. HPI: Patient presents due to concern for chest pain. Patient states that he began having chest pain last evening. Patient states this began around suppertime around 5 PM was coming and going lasting as long as 20 minutes in duration. No shortness of breath cough or fever. Patient was seen at the [facility] today and was up and about did have recurrence of pain around 3 PM. Patient states that he only notified his about the bout of chest pain today and thus presented here for further evaluation. He did not make his [facility] physician aware of it at that time. Patient does have a prior history of CABG. He does follow with a primary care physician in [place] twice year currently is on an 81 mg aspirin and Aggrenox does have a seizure history and does take meds. Patient has any leg swelling or calf pain. PAST MEDICAL HISTORY: See Below PAST SURGICAL HISTORY: See Below SOCIAL HISTORY: See Below HOME MEDICATIONS: See Below ALLERGIES: See Below VITALS: See Below PHYSICAL EXAMINATION: GENERAL: NAD, non-toxic. EYE EXAM: Normal conjunctiva. PERRL, no anisocoria and EOM's grossly intact w/o pain. Left eyelid droopiness. OROPHARYNX: Moist mucus membranes, grossly normal dentition. NECK: Trachea midline, no stridor. Supple, no nuchal rigidity, no adenopathy, non-tender. No signs of meningismus. FROM of the neck with good chin to chest and neck extension. LUNGS: Clear to auscultation. Normal chest wall mechanics. HEART: NSR, no MRG. ABDOMEN: Abdomen soft, non-tender, no masses, no rebound or guarding. BACK: No CVA TTP. SKIN: No rashes and no bruising. UPPER EXTREMITIES: Upper extremities are grossly normal. LOWER EXTREMITIES: Grossly normal, no edema. Negative Homans' sign bilaterally. NEURO EXAM: A&O x3, cranial nerves II-XII grossly intact left eye droop, normal speech, moves all 4 extremities. Past Med/Surg History Medical History Mild cognitive impairment Hypothyroidism (acquired) ASCVD (arteriosclerotic cardiovascular disease) Hypertension Hyperlipidemia Seizure BPH with obstruction/lower urinary tract symptoms Surgical History History of tonsillectomy History of knee surgery RIGHT History of heart surgery History of eye surgery Family History Denies family history of Prostate cancer Social History Smoking Status: Never smoker Hx Alcohol Use: No Hx Substance Use: No Preferred Language: Ivorian Communication Ability: Effective Piper Installer Required: No Beliefs That Will Affect Care: None marital status: Current Living Situation: Spouse current occupational status: retired Other Information That Helps Us Care for You: No Feels Safe at Home: Yes Safety Concerns: Feels Safe At This Time Assistive Devices: Glasses and Walker Allergies Allergies Allergy/AdvReac Type Severity Reaction Status Date / Time No Known Allergies Allergy Unknown Verified 03/16/24 16:30 Home Meds Home Medications Medication Instructions Recorded Confirmed aspirin 25 mg-dipyridamole 200 mg 1 cap PO QAM 05/25/21 03/16/24 capsule,ext.release 12 hr multiphase atorvastatin 40 mg tablet 40 mg PO HS 05/25/21 03/16/24 levothyroxine 75 mcg tablet 75 mcg PO QAM 05/25/21 03/16/24 (Synthroid) lisinopril 10 mg tablet 10 mg PO DAILY 05/25/21 03/16/24 metoprolol tartrate 50 mg tablet 50 mg PO DAILY 05/25/21 03/16/24 phenobarbital 16.2 mg tablet 16.2 mg PO QAM 05/25/21 03/16/24 phenobarbital 32.4 mg tablet 32.4 mg PO BID 05/25/21 03/16/24 aspirin 81 mg chewable tablet 81 mg PO DAILY 03/16/24 03/16/24 Previous Rx's Medication Instructions Recorded phenytoin sodium extended 100 mg 100 mg PO BID #60 caps 05/27/21 capsule tamsulosin 0.4 mg capsule 0.8 mg (2 x 0.4 mg) PO HS #0 caps 05/27/21 Results & Data (ED) Vital Signs Vital Signs - 24 hr 03/16/24 15:54 03/16/24 15:54 03/16/24 16:16 Pulse Rate 69 64 Pulse Rate [Apical] 68 Pulse Rate from SpO2 Sensor 63 Pulse Rhythm Regular Respiratory Rate 18 18 25 H Respiratory Effort / Characteristics Non-Labored Spontaneous Respiratory Depth Normal Blood Pressure Blood Pressure [Right Arm] 177/83 H Blood Pressure Mean Blood Pressure Mean [Right Arm] 114 Blood Pressure Position [Right Arm] Sitting Pulse Oximetry 96 96 94 Oxygen Delivery Method Room Air Room Air 03/16/24 16:18 03/16/24 16:20 03/16/24 16:30 Pulse Rate 63 61 Pulse Rate [Apical] Pulse Rate from SpO2 Sensor 62 Pulse Rhythm Respiratory Rate 25 H Respiratory Effort / Characteristics Respiratory Depth Blood Pressure 147/70 H Blood Pressure [Right Arm] Blood Pressure Mean 94 Blood Pressure Mean [Right Arm] Blood Pressure Position [Right Arm] Pulse Oximetry 93 Oxygen Delivery Method 03/16/24 16:30 03/16/24 16:40 03/16/24 16:50 Pulse Rate 60 60 61 Pulse Rate [Apical] Pulse Rate from SpO2 Sensor 52 L 64 61 Pulse Rhythm Respiratory Rate 21 20 21 Respiratory Effort / Characteristics Respiratory Depth Blood Pressure Blood Pressure [Right Arm] Blood Pressure Mean Blood Pressure Mean [Right Arm] Blood Pressure Position [Right Arm] Pulse Oximetry 93 92 93 Oxygen Delivery Method 03/16/24 17:00 03/16/24 17:01 03/16/24 17:01 Pulse Rate 65 64 Pulse Rate [Apical] Pulse Rate from SpO2 Sensor 65 67 Pulse Rhythm Respiratory Rate 20 23 Respiratory Effort / Characteristics Respiratory Depth Blood Pressure 182/79 H Blood Pressure [Right Arm] Blood Pressure Mean 104 Blood Pressure Mean [Right Arm] Blood Pressure Position [Right Arm] Pulse Oximetry 95 94 Oxygen Delivery Method 03/16/24 17:10 03/16/24 17:20 03/16/24 17:30 Pulse Rate 62 60 Pulse Rate [Apical] Pulse Rate from SpO2 Sensor 64 60 Pulse Rhythm Respiratory Rate 24 19 Respiratory Effort / Characteristics Respiratory Depth Blood Pressure 156/75 H Blood Pressure [Right Arm] Blood Pressure Mean 123 Blood Pressure Mean [Right Arm] Blood Pressure Position [Right Arm] Pulse Oximetry 91 91 Oxygen Delivery Method 03/16/24 17:30 03/16/24 17:30 03/16/24 17:36 Pulse Rate 69 Pulse Rate [Apical] 64 Pulse Rate from SpO2 Sensor 70 Pulse Rhythm Respiratory Rate 21 22 Respiratory Effort / Characteristics Respiratory Depth Blood Pressure 156/75 H Blood Pressure [Right Arm] 156/75 H Blood Pressure Mean 123 Blood Pressure Mean [Right Arm] 102 Blood Pressure Position [Right Arm] Pulse Oximetry 88 L 92 Oxygen Delivery Method Room Air 03/16/24 17:40 Pulse Rate 64 Pulse Rate [Apical] Pulse Rate from SpO2 Sensor 61 Pulse Rhythm Respiratory Rate 23 Respiratory Effort / Characteristics Respiratory Depth Blood Pressure Blood Pressure [Right Arm] Blood Pressure Mean Blood Pressure Mean [Right Arm] Blood Pressure Position [Right Arm] Pulse Oximetry 90 Oxygen Delivery Method Home Medications Current Medication List: was personally reviewed by me Laboratory Data Attestation: I reviewed the patient's lab results. 03/17/24 04:43 03/17/24 04:43 Lab Results 03/16/24 Range/Units 16:00 WBC 9.33 (4.8-10.8) K/ul RBC 4.16 L (4.70-6.10) M/uL Hgb 13.7 L (14.0-18.0) g/dl Hct 40.5 L (42.0-52.0) % MCV 97.4 (80.0-100.0) fL MCH 32.9 (25.0-34.0) pg MCHC 33.8 (32.0-36.0) g/dL RDW Std Deviation 46.9 H (36.4-46.3) fL RDW Coeff of Manisha 13.1 (11.5-14.5) % Plt Count 345 (130-400) K/uL MPV 8.7 L (9.4-12.4) fL Immature Gran % (Auto) 1.1 % Neut % (Auto) 55.9 % Lymph % (Auto) 24.0 % [facility] [place] % (Auto) 15.6 % Eos % (Auto) 2.5 % Baso % (Auto) 0.9 % Neut # (Auto) 5.22 (1.40-6.50) K/uL Lymph # (Auto) 2.24 (1.20-3.40) K/uL [facility] [place] # (Auto) 1.46 H (0.11-0.59) K/uL Eos # (Auto) 0.23 (0.00-0.50) K/uL Baso # (Auto) 0.08 (0.00-0.20) K/uL Immature Gran # (Auto) 0.10 (0.01-0.20) K/uL PT 11.5 (9.0-12.0) Seconds INR 1.1 (0.9-1.1) APTT 32 H (21-31) Seconds PTT Ratio 1.2 Sodium 138 (136-145) mmol/L Potassium 4.0 (3.5-5.1) mmol/L Chloride 104 (98-107) mmol/L Carbon Dioxide 27 (21-32) mmol/L Anion Gap 7 (3-11) BUN 21 (6-23) mg/dl Creatinine 0.90 (0.6-1.4) mg/dl Est Cr Clr Drug Dosing Not Reportable Est GFR ( Amer) 88.7 ml/min Est GFR (Non-Af Amer) 76.5 ml/min BUN/Creatinine Ratio 23.3 H (10-20) Glucose 130 H (70-99(Fasting)) mg/dl Calcium 10.0 (8.6-10.3) mg/dl Total Bilirubin 0.4 (0.2-1.0) mg/dl AST 24 (13-39) U/L ALT 18 (7-52) U/L Alkaline Phosphatase 117 H (34-104) U/L Troponin I High Sens 17.8 (0-20) pg/ml Total Protein 7.3 (6.0-8.3) gm/dl Albumin 4.0 (3.4-5.0) gm/dl Globulin 3.3 (2.5-4.0) gm/dl Albumin/Globulin Ratio 1.2 (0.9-2) Administered Medications Aspirin (Aspirin 81 Mg Ectab) 81 mg PO DAILY EVITA Stop: 04/16/24 08:59 Last Admin: 03/17/24 08:55 Dose: 81 mg Documented By: CELESTE Atorvastatin Calcium (Atorvastatin 40 Mg Tab) 40 mg PO HS [facility] Stop: 04/15/24 20:59 Last Admin: 03/16/24 21:50 Dose: Not Given Documented By: RADHA Dipyridamole/Aspirin (Dipyridamole/Aspirin Cap) 1 cap PO QAM EVITA Stop: 04/16/24 08:59 Last Admin: 03/17/24 08:55 Dose: 1 cap Documented By: CELESTE Enoxaparin Sodium (Enoxaparin Inj 40 Mg/0.4 Ml Syr) 40 mg SQ QAM [facility]ITA Stop: 04/16/24 08:59 Last Admin: 03/17/24 08:58 Dose: 40 mg Documented By: CELESTE Furosemide (Furosemide 40 Mg/4 Ml Vial) 40 mg IV DAILY [facility]ITA Stop: 04/16/24 08:59 Last Admin: 03/17/24 08:58 Dose: 40 mg Documented By: CELESTE Levothyroxine Sodium (Levothyroxine Sodium 75 Mcg Tablet) 75 mcg PO DAILYBB [facility] Stop: 04/16/24 06:29 Last Admin: 03/17/24 07:39 Dose: 75 mcg Documented By: CELESTE Lisinopril (Lisinopril 10 Mg Tab) 10 mg PO DAILY [facility] Stop: 04/16/24 08:59 Last Admin: 03/17/24 08:55 Dose: 10 mg Documented By: CELESTE Metoprolol Tartrate (Metoprolol Tartrate 50 Mg Tab) 50 mg PO DAILY [facility] Stop: 04/16/24 08:59 Last Admin: 03/17/24 13:05 Dose: 50 mg Documented By: CELESTE Phenobarbital (Phenobarbital 30 Mg Tab) 30 mg PO BID [facility] Stop: 04/16/24 08:59 Last Admin: 03/17/24 08:57 Dose: 30 mg Documented By: CELESTE Phenobarbital (Phenobarbital 15 Mg Tab) 15 mg PO QAM [facility] Stop: 04/16/24 08:59 Last Admin: 03/17/24 08:57 Dose: 15 mg Documented By: CELESTE Phenytoin Sodium (Phenytoin Sodium Er 100 Mg Cap) 100 mg PO BID [facility] Stop: 04/15/24 20:59 Last Admin: 03/17/24 08:57 Dose: 100 mg Documented By: Admin: 03/16/24 21:50 Dose: Not Given Documented By: RADHA Tamsulosin HCl (Tamsulosin Hcl 0.4 Mg Cap) 0.8 mg PO HS [facility] Stop: 04/15/24 20:59 Last Admin: 03/16/24 22:18 Dose: 0.8 mg Documented By: RADHA Discontinued Medications Aspirin (Aspirin Chew 324 Mg) 324 mg PO NOW STA Stop: 03/16/24 17:08 Last Admin: 03/16/24 17:21 Dose: 324 mg Documented By: CELESTE Atropine Sulfate (Atropine Sulfate 0.1 Mg/Ml 10ml Syr) Confirm Administered Dose 2 mg IV .STK-MED ONE Stop: 03/17/24 10:16 Last Admin: 03/17/24 12:47 Dose: Not Given Documented By: IRIS Dobutamine HCl (Dobutamine Hcl 12.5 Mg/Ml 20 Ml Vial) Confirm Administered Dose 250 mg IV .STK-MED ONE Stop: 03/17/24 10:16 Last Admin: 03/17/24 12:45 Dose: 1 dose Documented By: IRIS Furosemide (Furosemide 40 Mg/4 Ml Vial) 40 mg IV ONE ONE Stop: 03/16/24 17:36 Last Admin: 03/16/24 17:52 Dose: 40 mg Documented By: Magnesium Sulfate/Dextrose (Magnesium Sulfate / D5w) 1 gm in 100 mls @ 50 mls/hr IV Q2H EVITA Stop: 03/17/24 11:14 Last Infusion: 03/17/24 15:13 Dose: Infused Documented By: Admin: 03/17/24 11:47 Dose: 50 mls/hr Documented By: Infusion: 03/17/24 11:36 Dose: Infused Documented By: Admin: 03/17/24 07:40 Dose: 50 mls/hr Documented By: CELESTE Metoprolol Tartrate (Metoprolol Tartrate 1 Mg/Ml Vial) Confirm Administered Dose 10 mg IV .STK-MED ONE Stop: 03/17/24 10:16 Last Admin: 03/17/24 12:48 Dose: Not Given Documented By: IRIS Nitroglycerin (Nitroglycerin Sl 0.4 Mg/Tab Tab) 0.4 mg SL NOW STA Stop: 03/16/24 17:08 Last Admin: 03/16/24 17:22 Dose: 0.4 mg Documented By: CELESTE Imaging Data Radiologist's Impression: Chest X-Ray 03/16/24 15:42 XR chest 1V portable HISTORY: 88 years-old Male Chest pain, nonspecific COMPARISON: 05/25/2021 TECHNIQUE: AP view the chest FINDINGS: Cardiac silhouette is enlarged. Median sternotomy. Atherosclerosis of the aorta. Pulmonary vascular congestion with chronic interstitial coarsening. Eventration of the right hemidiaphragm. No pneumothorax, pleural effusion or lobar airspace consolidation. The bones appear grossly intact. IMPRESSION: Cardiomegaly with pulmonary vascular congestion. ACT 112: Negative or not required by law. The above report was generated using voice recognition software. It may contain grammatical, syntax or spelling errors. Electronically signed by: Dario Alcaraz M.D. 03/16/2024 4:38 PM Discharge Plan Visit Data Chief Complaint: Chest Pain Stated Complaint: CHEST PAINS ED Provider: Christopher Garcia Discharge Problem: Chest pain, Hypertension, History of coronary artery bypass graft Patient Disposition: Admitted As Inpatient Discharge Instructions Interventions: ED Discharge Assessment Last Done: 03/16/24 20:55 Discharge Problem: Chest pain Qualifiers: Chest pain type: unspecified Qualified Code(s): R07.9 - Chest pain, unspecified Hypertension Qualifiers: Hypertension type: unspecified Qualified Code(s): I10 - Essential (primary) hypertension
[2024-03-16 16:36] LABS: Alanine Aminotransferase 18 U/L (7-52); Albumin Globulin Ratio 1.2 (0.9-2); Alkaline Phosphatase 117 U/L (34-104); Anion Gap 7 (3-11); Aspartate Aminotransferase 24 U/L (13-39); BUN Creatinine Ratio 23.3 (10-20); Bilirubin,Total 0.4 mg/dl (0.2-1.0); Blood Urea Nitrogen 21 mg/dl (6-23); Carbon Dioxide 27 mmol/L (21-32); Chloride 104 mmol/L (98-107); Est GFR (African American) 88.7 ml/min; Est GFR (Non-African American) 76.5 ml/min; Globulin 3.3 gm/dl (2.5-4.0); Glucose 130 mg/dl (70-99(Fasting)); Sodium 138 mmol/L (136-145); Total Protein 7.3 gm/dl (6.0-8.3)
--- NOTE | 2024-03-16 16:39 | XRay Report ---
XR chest 1V portable HISTORY: 88 years-old Male Chest pain, nonspecific COMPARISON: 05/25/2021 TECHNIQUE: AP view the chest FINDINGS: Cardiac silhouette is enlarged. Median sternotomy. Atherosclerosis of the aorta. Pulmonary vascular c ongestion with chronic interstitial coarsening. Eventration of the right hemidiaphragm. No pneumothor ax, pleural effusion or lobar airspace consolidation. The bones appear grossly intact. IMPRESSION: Cardiomegaly with pulmonary vascular congestion. ACT 112: Negative or not required by law. The above report was generated using voice recognition software. It may contain grammatical, syntax o r spelling errors. Electronically signed by: Dario Alcaraz M.D. 03/16/2024 4:38 PM
[2024-03-16 16:43] LABS: Troponin I High Sensitivity 17.8 pg/ml (0-20)
[2024-03-16] MEDS ORDERED: NITROGLYCERIN SL 0.4 MG/TAB TAB SL PRN ×2 (17:07→20:55)
[2024-03-16] MEDS: ASPIRIN CHEW 324 MG PO STA (17:21)
[2024-03-16] MEDS: NITROGLYCERIN SL 0.4 MG/TAB TAB SL STA (17:22)
--- NOTE | 2024-03-16 17:44 | History & Physical Report ---
Date of Service March 16, 2024 Assessment & Plan (1) Chest pain: Plan: -Acute chest pain occurring intermittently for past x18 hours in patient with known CAD history -EKG on admission does not suggest acute ischemia -CXR w/ cardiomegaly + pulmonary vascular congestion b/l -Initial troponin negative at 17, repeat pending -TTE ordered, pending -Chest pain may be due to potential CHF vs unstable angina -Nitroglycerin, morphine PRN chest pain -Trial of diuresis for now, deferring cardiology consult to possible AM if no improvement -Monitor BMP, Mg. BNP added to AM labs (2) Hypervolemia: Plan: -Pt presents with some evidence of volume overload including unintentional weight gain 7+ lbs over past month, CXR imaging with pulmonary vascular congestion, bibasilar crackles on lung exam -Lasix 40 mg IV x1 given in ER, will continue Lasix 40 mg IV daily for now -Dietary salt and fluid restriction -TTE ordered as above (3) Coronary artery disease: Plan: -Noted history of CAD s/p CABG in -Continue aspirin, aspirin/dipyridamole, lisinopril, metoprolol, atorvastatin (4) Hypertension: Plan: -BP elevated on admission likely due to pain, has since improved -Continue lisinopril and metoprolol (5) Hyperlipidemia: Plan: -Continue atorvastatin 40 mg -Lipid panel ordered for AM (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, stable -Continue tamsulosin (7) Seizure: Plan: -Chronic, stable -No recent seizures -Continue phenytoin and phenobarbital (8) Hypothyroidism (acquired): Plan: -Continue levothyroxine Plan FENGI: Heart healthy, low salt, fluid restriction Code status: Full DVT prophylaxis: Lovenox Isolation: None Unit: Medical/surgical with telemetry Disposition planning: Anticipate to home History of Present Illness Chief Complaint: Chest pain Primary Care Provider: LADY Cha Pt is 88 yo M with PMH CAD s/p CABG in , HTN, HLD, hypothyroidism, dementia, BPH, seizure disorder presenting with chest pain. Pt reports onset of acute chest pain shortly after midnight the prior night. Chest pain is central/left-sided, moderate severity 5/10, sharp quality, no associated dyspnea or nausea, no radiation. Pain resolved within 30 minutes. Pain has been intermittent since then, occurring every 1-2 hours and with similar characteristics as initial episode. Pain occurs more often when reclined/laying down. He states pain is similar to when he had an NC in leading to his CABG. Over last several weeks, pt was on vacation in [place] (where he normally resides from August to January) and has had increased salt intake. Though he denies dyspnea and leg swelling, he has had unintentional 7 lbs weight gain over past month. Pt arrived to ER with BP elevated to 201/73. Initial evaluation with unremarkable CBC, CMP. CXR demonstrates cardiomegaly w/ b/l pulmonary vascular congestion. Troponin 17, repeat pending. EKG demonstrating sinus rhythm with 1st degree AV block, no significant ST change. ER interventions include aspirin 324 mg x1 and nitroglycerin 0.4 mg x1. At present, pt reports no chest pain. He feels well at the moment. Allergies Allergy/AdvReac Type Severity Reaction Status Date / Time No Known Allergies Allergy Unknown Verified 03/16/24 16:30 Home Medications Medication Instructions Recorded Confirmed Type aspirin 25 mg-dipyridamole 200 mg 1 cap PO QAM 05/25/21 03/16/24 History capsule,ext.release 12 hr multiphase atorvastatin 40 mg tablet 40 mg PO HS 05/25/21 03/16/24 History levothyroxine 75 mcg tablet 75 mcg PO QAM 05/25/21 03/16/24 History (Synthroid) lisinopril 10 mg tablet 10 mg PO DAILY 05/25/21 03/16/24 History metoprolol tartrate 50 mg tablet 50 mg PO DAILY 05/25/21 03/16/24 History phenobarbital 16.2 mg tablet 16.2 mg PO QAM 05/25/21 03/16/24 History phenobarbital 32.4 mg tablet 32.4 mg PO BID 05/25/21 03/16/24 History phenytoin sodium extended 100 mg 100 mg PO BID #60 caps 05/27/21 03/16/24 Rx capsule tamsulosin 0.4 mg capsule 0.8 mg (2 x 0.4 mg) PO HS #0 caps 05/27/21 03/16/24 Rx aspirin 81 mg chewable tablet 81 mg PO DAILY 03/16/24 03/16/24 History Past Med/Surg History Medical History Mild cognitive impairment Hypothyroidism (acquired) ASCVD (arteriosclerotic cardiovascular disease) Hypertension Hyperlipidemia Seizure BPH with obstruction/lower urinary tract symptoms Surgical History History of tonsillectomy History of knee surgery RIGHT History of heart surgery History of eye surgery Family History Denies family history of Prostate cancer Social History Smoking Status: Never smoker Hx Alcohol Use: No Hx Substance Use: No Preferred Language: Bulgarian Communication Ability: Effective Antitank Assault Gunner Required: No Beliefs That Will Affect Care: None marital status: Current Living Situation: Spouse current occupational status: retired Other Information That Helps Us Care for You: No Feels Safe at Home: Yes Safety Concerns: Feels Safe At This Time Assistive Devices: Glasses Review of Systems Review of Systems: Per HPI/Subjective Physical Exam Physical Exam: General: well-appearing, no acute distress HEENT: PERRL, conjunctivae clear without injection, anicteric sclerae, moist mucous membranes, clear oropharynx without exudate or erythema Neck: supple, trachea midline, no JVD CV: RRR, normal S1 and S2, no murmurs Resp: Bibasilar crackles, no increased work of breathing, no wheezes Abd: Soft, nontender, nondistended, no guarding or rebound, no hepatosplenomegaly MSK: Normal bulk of all four extremities Neuro: AOx3, no focal motor or sensory deficits Skin: no rashes or lesions, warm and dry Ext: b/l trace LE peripheral edema without erythema, capillary refill <2s in all four extremities, 2+ LE peripheral pulses b/l Results & Data Results & Data Vital Signs (Past 12 Hours) Vital Signs Temp Pulse Pulse Resp BP BP Pulse Ox 03/16/24 16:18 63 03/16/24 15:54 69 18 96 03/16/24 15:54 68 18 177/83 H 96 03/16/24 15:36 36.8 C 72 18 201/73 H 96 O2 Del Method 03/16/24 16:18 03/16/24 15:54 Room Air 03/16/24 15:54 Room Air 03/16/24 15:36 Room Air Supervising Physician Co-Signing Physician Notes I personally saw and examined the patient. I verified all muro points and agree with resident physician Dr Melinda Tsang, with the following exceptions and/or additions: 88 year old male presents to the ER with intermittent chest pain episodes. He is unable to give me any significant history regarding this as he is currently unsure why he is in the ER. Per his he has some memory issues but [facility] she told him about intermittent chest pain episodes he has been having since last night at rest, lasting for 15 minutes, worse on lying down. He is currently chest pain free. O/E Alert and orientated to person only, HS RRR, no murmurs, Chest CTAB, Abdo SNT A/P Chest pain - CHF vs. unstable angina, reassuringly troponins x2 negative. dobutamine stress echo ordered for tomorrow Acute CHF with unknown EF - possible orthopnea described by patient although he has some memory issues and is not clear on his symptoms. Agree with Lasix 40mg IV, TTE, Strict I&Os, daily weights Resident Activity Tracking Resident Involvement: Resident Care Provided Care Provided: Adult Hospital Medicine
[2024-03-16] MEDS: FUROSEMIDE 40 MG/4 ML VIAL IV ONE (17:52)
[2024-03-16] MEDS ORDERED: MoRPHine SULFATE 2 MG/ML CARP IV PRN (20:55)
[2024-03-16] MEDS: ATORVASTATIN 40 MG TAB PO SCH (21:50)
[2024-03-16] MEDS: PHENYTOIN SODIUM ER 100 MG CAP PO SCH (21:50)
[2024-03-16] MEDS: TAMSULOSIN HCL 0.4 MG CAP PO SCH (22:18)
[2024-03-17 05:17] LABS: Hemoglobin 14.2 g/dl (14.0-18.0); Mean Corpuscular Hemoglobin 33.2 pg (25.0-34.0); Mean Corpuscular Hgb Conc 34.6 g/dL (32.0-36.0); Mean Corpuscular Volume 95.8 fL (80.0-100.0); Mean Platelet Volume 8.7 fL (9.4-12.4); Platelet Count 336 K/uL (130-400); RDW Coefficient of Variation 13.1 % (11.5-14.5); RDW Standard Deviation 46.3 fL (36.4-46.3); Red Blood Count 4.28 M/uL (4.70-6.10); White Blood Count 11.23 K/ul (4.8-10.8)
[2024-03-17 05:43] LABS: BUN Creatinine Ratio 21.6 (10-20); Calcium 9.9 mg/dl (8.6-10.3); Chol HDL Ratio 3.1 (0-5); Creatinine Clr Calc Pharmacy 69.7 ml/min; Est GFR (African American) 89.5 ml/min; Est GFR (Non-African American) 77.2 ml/min; Magnesium 1.8 mg/dl (1.7-2.4); Potassium 3.7 mmol/L (3.5-5.1)
--- NOTE | 2024-03-17 07:04 | Hospitalist Progress Note ---
Date of Service March 17, 2024 Assessment & Plan (1) Chest pain: Plan: -Acute chest pain occurring intermittently for past x18 hours in patient with known CAD history -EKG on admission does not suggest acute ischemia -CXR w/ cardiomegaly + pulmonary vascular congestion b/l -Initial troponin negative at 17, repeat pending -TTE ordered, pending -Chest pain may be due to potential CHF vs unstable angina -Nitroglycerin, morphine PRN chest pain -Trial of diuresis for now, deferring cardiology consult to possible AM if no improvement -Monitor BMP, Mg. BNP added to AM labs (2) Hypervolemia: Plan: -Pt presents with some evidence of volume overload including unintentional weight gain 7+ lbs over past month, CXR imaging with pulmonary vascular congestion, bibasilar crackles on lung exam -Lasix 40 mg IV x1 given in ER, will continue Lasix 40 mg IV daily for now -Dietary salt and fluid restriction -TTE ordered as above (3) Coronary artery disease: Plan: -Noted history of CAD s/p CABG in -Continue aspirin, aspirin/dipyridamole, lisinopril, metoprolol, atorvastatin (4) Hypertension: Plan: -BP elevated on admission likely due to pain, has since improved -Continue lisinopril and metoprolol (5) Hyperlipidemia: Plan: -Continue atorvastatin 40 mg -Lipid panel ordered for AM (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, stable -Continue tamsulosin (7) Seizure: Plan: -Chronic, stable -No recent seizures -Continue phenytoin and phenobarbital (8) Hypothyroidism (acquired): Plan: -Continue levothyroxine Plan FENGI: Heart healthy, low salt, fluid restriction Code status: Full DVT prophylaxis: Lovenox Isolation: None Unit: Medical/surgical with telemetry Disposition planning: Anticipate to home Admission and Anticipated Discharge Date Admission Date: March 16, 2024 Subjective 03/17/24: Physical Exam Physical Exam: General: well-appearing, no acute distress HEENT: PERRL, conjunctivae clear without injection, anicteric sclerae, moist mucous membranes, clear oropharynx without exudate or erythema Neck: supple, trachea midline, no JVD CV: RRR, normal S1 and S2, no murmurs Resp: Bibasilar crackles, no increased work of breathing, no wheezes Abd: Soft, nontender, nondistended, no guarding or rebound, no hepatosplenomegaly MSK: Normal bulk of all four extremities Neuro: AOx3, no focal motor or sensory deficits Skin: no rashes or lesions, warm and dry Ext: b/l trace LE peripheral edema without erythema, capillary refill <2s in all four extremities, 2+ LE peripheral pulses b/l Results & Data Results & Data Vital Signs (Past 12 Hours) Vital Signs Pulse Pulse Resp BP BP Pulse Ox Pulse Ox 03/17/24 05:00 99 H 21 148/90 H 92 03/17/24 04:00 87 23 135/72 95 03/17/24 03:30 95 H 15 94 03/17/24 03:30 145/86 H 03/17/24 03:30 86 23 145/86 H 95 03/17/24 03:00 91 H 15 93 03/17/24 03:00 118/66 03/17/24 02:30 98 H 19 92 03/17/24 02:01 80 20 93 03/17/24 02:00 123/79 03/17/24 01:59 93 H 22 92 03/17/24 01:54 95 03/17/24 01:30 96 H 21 132/78 91 03/17/24 01:30 132/78 03/17/24 01:00 93 H 21 130/78 91 03/17/24 00:30 103 H 25 H 91 03/17/24 00:30 168/88 H 03/17/24 00:00 92 H 23 162/79 H 93 03/16/24 23:56 93 H 03/16/24 23:48 85 17 159/82 H 95 03/16/24 23:30 159/82 H 03/16/24 23:30 159/82 H 03/16/24 23:30 79 22 93 03/16/24 23:00 88 22 93 03/16/24 23:00 162/83 H 03/16/24 22:30 74 22 94 03/16/24 22:30 150/73 H 03/16/24 22:01 80 17 92 03/16/24 21:40 88 27 H 93 03/16/24 21:30 173/81 H 03/16/24 21:30 75 23 94 03/16/24 21:20 75 26 H 93 05/01/24 21:10 78 15 94 03/16/24 21:05 95 03/16/24 20:55 91 03/16/24 20:55 90 03/16/24 20:50 77 28 H 93 03/16/24 20:41 73 25 H 94 03/16/24 20:32 72 22 93 03/16/24 20:21 71 18 94 03/16/24 20:12 75 03/16/24 20:10 76 24 94 03/16/24 20:00 160/77 H 03/16/24 20:00 74 21 95 03/16/24 19:50 22 94 03/16/24 19:45 36 H 03/16/24 19:30 65 24 93 03/16/24 19:30 139/71 03/16/24 19:21 66 21 94 03/16/24 19:10 70 25 H 95 O2 Del Method O2 Del Method O2 Flow Rate 03/17/24 05:00 Nasal Cannula 2 03/17/24 04:00 Nasal Cannula 2 03/17/24 03:30 03/17/24 03:30 03/17/24 03:30 Nasal Cannula 2 03/17/24 03:00 03/17/24 03:00 03/17/24 02:30 03/17/24 02:01 03/17/24 02:00 03/17/24 01:59 03/17/24 01:54 Room Air 03/17/24 01:30 03/17/24 01:30 03/17/24 01:00 Room Air 03/17/24 00:30 Room Air 03/17/24 00:30 03/17/24 00:00 Room Air 03/16/24 23:56 03/16/24 23:48 Room Air 03/16/24 23:30 03/16/24 23:30 03/16/24 23:30 03/16/24 23:00 03/16/24 23:00 03/16/24 22:30 03/16/24 22:30 03/16/24 22:01 03/16/24 21:40 03/16/24 21:30 03/16/24 21:30 03/16/24 21:20 03/16/24 21:10 03/16/24 21:05 03/16/24 20:55 Room Air 03/16/24 20:55 03/16/24 20:50 03/16/24 20:41 03/16/24 20:32 03/16/24 20:21 03/16/24 20:12 03/16/24 20:10 03/16/24 20:00 03/16/24 20:00 03/16/24 19:50 03/16/24 19:45 03/16/24 19:30 03/16/24 19:30 03/16/24 19:21 03/16/24 19:10
[2024-03-17] MEDS: LEVOTHYROXINE SODIUM 75 MCG TABLET PO SCH (07:39)
[2024-03-17] MEDS: MAGNESIUM SULFATE / D5W 1 GM/100 ML BAG IV SCH (07:40)
--- NOTE | 2024-03-17 07:44 | Billing Data ---
Date of Service March 16, 2024 Coding Level of Care Code 87953 INT INP/OBS CARE
--- NOTE | 2024-03-17 07:53 | Discharge Summary ---
Date of Service March 17, 2024 Admission HPI Per Admitting Provider Pt is 88 yo M with PMH CAD s/p CABG in , HTN, HLD, hypothyroidism, dementia, BPH, seizure disorder presenting with chest pain. Pt reports onset of acute chest pain shortly after midnight the prior night. Chest pain is central/left-sided, moderate severity 5/10, sharp quality, no associated dyspnea or nausea, no radiation. Pain resolved within 30 minutes. Pain has been intermittent since then, occurring every 1-2 hours and with similar characteristics as initial episode. Pain occurs more often when reclined/laying down. He states pain is similar to when he had an AL in leading to his CABG. Over last several weeks, pt was on vacation in [place] (where he normally resides from August to January) and has had increased salt intake. Though he denies dyspnea and leg swelling, he has had unintentional 7 lbs weight gain over past month. Pt arrived to ER with BP elevated to 201/73. Initial evaluation with unremarkable CBC, CMP. CXR demonstrates cardiomegaly w/ b/l pulmonary vascular congestion. Troponin 17, repeat pending. EKG demonstrating sinus rhythm with 1st degree AV block, no significant ST change. ER interventions include aspirin 324 mg x1 and nitroglycerin 0.4 mg x1. At present, pt reports no chest pain. He feels well at the moment. Admission Exam Per Admitting Provider General: well-appearing, no acute distress HEENT: PERRL, conjunctivae clear without injection, anicteric sclerae, moist mucous membranes, clear oropharynx without exudate or erythema Neck: supple, trachea midline, no JVD CV: RRR, normal S1 and S2, no murmurs Resp: Bibasilar crackles, no increased work of breathing, no wheezes Abd: Soft, nontender, nondistended, no guarding or rebound, no hepatosplenomegaly MSK: Normal bulk of all four extremities Neuro: AOx3, no focal motor or sensory deficits Skin: no rashes or lesions, warm and dry Ext: b/l trace LE peripheral edema without erythema, capillary refill <2s in all four extremities, 2+ LE peripheral pulses b/l Principal Diagnosis Chest Pain Discharge Exam Gen: NAD, alert, interactive HEENT: Supple, no LAD, no thyromegaly, no JVD Resp:Non-labored, no wheezing/rhonchi/rales, CTAB CV:RRR, normal S1/S2, no M/R/G Abd: Soft, non-distended, no TTP, normoactive bowels, no masses Extr: 2+ dp bilaterally, no edema Skin: No rashes lesions or erythema Discharge Data Allergies Allergy/AdvReac Type Severity Reaction Status Date / Time No Known Allergies Allergy Unknown Verified 03/16/24 16:30 Consultations 03/16/24 17:16 ED Decision to Admit Stat Ordered Studies Chest X-Ray 03/16/24 15:42 XR chest 1V portable HISTORY: 88 years-old Male Chest pain, nonspecific COMPARISON: 05/25/2021 TECHNIQUE: AP view the chest FINDINGS: Cardiac silhouette is enlarged. Median sternotomy. Atherosclerosis of the aorta. Pulmonary vascular congestion with chronic interstitial coarsening. Eventration of the right hemidiaphragm. No pneumothorax, pleural effusion or lobar airspace consolidation. The bones appear grossly intact. IMPRESSION: Cardiomegaly with pulmonary vascular congestion. ACT 112: Negative or not required by law. The above report was generated using voice recognition software. It may contain grammatical, syntax or spelling errors. Electronically signed by: Dario Alcaraz M.D. 03/16/2024 4:38 PM Hospital Course (1) Chest pain: (2) Hypervolemia: (3) Coronary artery disease: (4) Hypertension: (5) Hyperlipidemia: (6) BPH with obstruction/lower urinary tract symptoms: (7) Seizure: (8) Hypothyroidism (acquired): Plan (1) Chest pain: Plan: - Patient w/ known CAD hx presenting w/ ~ 18h of chest pain - Resolved since presentation, no active chest pain or dyspnea - Serial EKGs w/o evidence of ischemia - CXR w/ cardiomegaly and pulmonary vascular congestion - Troponin's peaked at 18, likely demand - Dobutamin stress echo w/o evidence of ischemia, (2) Acute HFpEF: Plan: - EF 60-65%, no severe valvular anomalies - Patient s/p Lasix 20 mg IV x 2, now with resolution of crackles and LE edema - Suspect acute fluid overload a/w dietary indiscretion vs HF exacerbation, less likely unstable angina Patient with unintentional weight gain over last month, 7+ lbs Potential a/w recent vacation and increased salty food intake Provided dietary relationship counselor with patient and at bedside (3) Coronary artery disease: Plan: -Noted history of CAD s/p CABG in -Continue aspirin, aspirin/dipyridamole, lisinopril, metoprolol, atorvastatin (4) Hypertension: Plan: -BP elevated on admission likely due to pain, has since improved -Continue lisinopril and metoprolol upon discharge (5) Hyperlipidemia: Plan: -Continue atorvastatin 40 mg -Lipid panel unremarkable (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, stable -Continue tamsulosin (7) Seizure: Plan: -Chronic, stable -No recent seizures -Continue phenytoin and phenobarbital (8) Hypothyroidism (acquired): Plan: -Continue levothyroxine Total Time Total Time Spent Total Time Spent (In Minutes): <30 Discharge Plan Discharge Items Patient Disposition: Home - Self-Care Reason For Visit: CHEST PAIN, CHF Discharge Diagnosis: Chest Discomfort CHF Activity: Per Instructions section Non-emergency contact: Primary Care Provider Call non-emergency contact if: you have any medication questions and your symptoms worsen Follow-up/Referrals: Fred Blake CRNP [Primary Care Provider] - Diet: Heart Healthy Addtl Attending Provider Instructions: You were admitted to the hospital to work up chest pain. Your cardiac workup was unremarkable; your EKGs, troponin levels, and stress echocardiogram were all normal. You were noted to be fluid overloaded during your admission and received 2 IV doses of diuretics, this fluid retention was likely associated with your recent vacation and increased salt intake. It is unlikely that you were experiencing a heart failure exacerbation during this admission, your ejection fraction on the Echocardiogram was normal and your BNP level was only minimally elevated. Please continue to follow with your primary care provider regarding your fluid status. Your home medications will not be changed upon discharge. It was a pleasure to be a part of your care, we wish you the best in your health and recovery. Pending Studies at Discharge: No Stand-Alone Forms: My [facility] [place], Smoking Cessation Medications and DC Order Prescriptions: Continued atorvastatin 40 mg tablet 40 mg PO HS phenobarbital 16.2 mg tablet 16.2 mg PO QAM aspirin-dipyridamole 25-200 mg Capsule, Er Multiphase 12 Hr 1 cap PO QAM levothyroxine [Synthroid] 75 mcg tablet 75 mcg PO QAM lisinopril 10 mg tablet 10 mg PO DAILY metoprolol tartrate 50 mg tablet 50 mg PO DAILY phenobarbital 32.4 mg tablet 32.4 mg PO BID phenytoin sodium extended 100 mg capsule 100 mg PO BID Qty: 60 0RF Rx Instructions: TAKES QAM, NOON & NIGHT tamsulosin 0.4 mg capsule 0.8 mg PO HS Qty: 0 0RF aspirin 81 mg Tablet,Chewable 81 mg PO DAILY Discharge Orders: Discharge Order (Routine); Ordered 03/17/24 Ordered By: Agustina Castro Admission Data Admit Date/Time: 03/16/24 17:42 Attending Provider: Ruth Hewitt Admit Provider: Melinda Tsang Primary Care Provider: Fred Blake Other Providers: Ok Collier Other Interventions: Discharge Summary Assessment (RN) Last Done: 03/17/24 16:00 Supervising Physician Co-Signing Physician Notes Attending Physician Supervision Note: I independently interviewed and examined the patient and verified the muro history and physical, reviewed labs and image studies and agree with findings and care plan noted above.
[2024-03-17] MEDS: ASPIRIN 81 MG ECTAB PO SCH (08:55)
[2024-03-17] MEDS: lisinopril 10 MG TAB PO SCH (08:55)
[2024-03-17] MEDS: DIPYRIDAMOLE/ASPIRIN CAP PO SCH (08:55)
[2024-03-17] MEDS: PHENobarbitaL 15 MG TAB PO SCH (08:57)
[2024-03-17] MEDS: PHENobarbitaL 30 MG TAB PO SCH (08:57)
[2024-03-17] MEDS: ENOXAPARIN INJ 40 MG/0.4 ML SYR SQ SCH (08:58)
[2024-03-17] MEDS: FUROSEMIDE 40 MG/4 ML VIAL IV SCH (08:58)
--- NOTE | 2024-03-17 10:05 | Electrocardiogram Report ---
Test Reason : Blood Pressure : / mmHG Vent. Rate : 067 BPM Atrial Rate : 000 BPM P-R Int : 000 ms QRS Dur : 096 ms QT Int : 422 ms P-R-T Axes : 000 034 037 degrees QTc Int : 445 ms Sinus rhythm with 1st degree A-V block Abnormal ECG When compared with ECG of 25-MAY-2021 16:33, No significant change Confirmed by Emerson Danielle ([id number]) on 03/17/2024 10:04:56 AM Referred By: Confirmed By:Emerson Danielle
--- NOTE | 2024-03-17 10:07 | Electrocardiogram Report ---
Test Reason : Blood Pressure : / mmHG Vent. Rate : 098 BPM Atrial Rate : 102 BPM P-R Int : 000 ms QRS Dur : 094 ms QT Int : 368 ms P-R-T Axes : 000 027 -05 degrees QTc Int : 469 ms Sinus rhythm with paroxysmal atrial tachycardia Possible Inferior infarct , age undetermined Abnormal ECG When compared with ECG of 16-MAR-2024 15:48, (unconfirmed) PAT is now present Nonspecific T wave abnormality now evident in Lateral leads Confirmed by Emerson Danielle ([id number]) on 03/17/2024 10:06:44 AM Referred By: REFERRED SELF Confirmed By:Emerson Danielle
[2024-03-17] MEDS: DOBUTamine HCL 12.5 MG/ML 20 ML VIAL IV ONE (12:45)
[2024-03-17] MEDS: ATROPINE SULFATE 0.1 MG/ML 10ML SYR IV ONE (12:47)
[2024-03-17] MEDS: METOPROLOL TARTRATE 1 MG/ML VIAL IV ONE (12:48)
[2024-03-17] MEDS: METOPROLOL TARTRATE 50 MG TAB PO SCH (13:05)
--- NOTE | 2024-03-17 16:23 | XCELERA ---
[id number]
== END 2024-03-17 16:00 | disposition home or self-care (01) ==
LOC: ED 15:35 → EDINP 15:35 → SUATTDRO 17:42 → EDINP 20:55